=== PATIENT | female | born 1995 | race Caucasian/White ===

== ENCOUNTER 2021-01-16 12:52 | Emergency (ER) | payer OTHER, SELFPAY ==
[2021-01-16 12:51] VITALS: BP 143/110; PULSE 81; RESP 14; TEMP 36.8; O2SAT 99
[2021-01-16 13:42] LABS: Basophils Percent Auto 0.8 % (0.2-1.2); Eosinophils Absolute Auto 0.2 K/mm3 (0-0.3); Eosinophils Percent Auto 3.8 % (0-4.4); Hematocrit 42.3 % (37.0-47.0); Immature Granulocyte Absolute 0.01 K/mm3 (0.00-0.031); Immature Granulocyte Percent A 0.2 % (0-0.5); Lymphocytes Absolute Auto 1.78 K/mm3 (0.9-3.2); Mean Corpuscular HGB Conc 33.1 g/dl (32-36); Mean Corpuscular Hemoglobin 29.7 pg (26-34); Mean Corpuscular Volume 89.6 fl (80-100); Mean Platelet Volume 10.1 fl (7.4-10.4); Monocytes Absolute Auto 0.4 K/mm3 (0.1-0.6); Monocytes Percent Auto 7.9 % (2.6-8.5); Neutrophils Absolute Auto 2.5 K/mm3 (1.3-6.7); Neutrophils Percent Auto 51.3 % (45.5-73.1); Platelet Count Result 249 k/mm3 (150-375); Red Blood Count 4.72 M/mm3 (4.2-5.4); Red Cell Distribution Width 12.2 % (11.5-14.5); White Blood Count 4.9 K/mm3 (4.5-10.0)
[2021-01-16 13:49] LABS: Add Urine Microscopic? YES; Appearance Urine Cloudy (Clear); Bacteria Urine 1+ /hpf; Bilirubin Urine Negative (Negative); Blood Urine Negative (Negative); Color Urine Amber (Yellow); Glucose Urine UA Negative (Negative); Ketones Urine Negative (Negative); Leukocyte Esterase Ur 1+ LEU/UL (Negative); Mucus Urine Heavy /lpf; Nitrate Urine Negative (Negative); Protein Urine 2+ mg/dL (Negative); Specific Grav Ur 1.025 (1.001-1.035); Squamous Epithelial Cell Urine Moderate /hpf (Few); Urobilinogen Urine Negative mg/dL (<2.0); WBC Urine 16-20 /hpf
[2021-01-16 13:54] LABS: Ethanol < 10 mg/dL (<10)
[2021-01-16 13:55] LABS: Alanine Aminotransferase 55 U/L (4-35); Albumin Level 4.2 g/dL (3.5-5.1); Alkaline Phosphatase 52 U/L (38-126); Anion Gap 7 mmol/L (8-16); Aspartate Amino Transferase 47 U/L (14-36); Bilirubin,Total 0.6 mg/dL (0.2-1.3); Blood Urea Nitrogen 9 mg/dL (7-17); Carbon Dioxide 29 mmol/L (22-30); Chloride 105 mmol/L (98-107); Estimated Glomerular Filt Rate > 60; Glucose 114 mg/dL (65-105); Potassium 3.3 mmol/L (3.4-5.0); Sodium 141 mmol/L (137-145)
[2021-01-16 13:59] LABS: Barbiturate Screen Urine Negative (Negative); Benzodiazepines Screen Urine Positive (Negative)
[2021-01-16 14:01] LABS: Cannabinoid Screen Urine Positive (Negative); Cocaine Screen Urine Negative (Negative); Methadone Screen Urine Negative (Negative); Opiate Screen Urine Negative (Negative); Phencyclidine Screen Urine Negative (Negative)
[2021-01-16 14:16] LABS: Amphetamine Screen Urine Positive (Negative)
--- NOTE | 2021-01-16 14:24 | ED.PSYCH ---
HPI - Psych General Chief Complaint: Psychiatric Symptoms Stated Complaint: SI Time Seen by Provider: 01/16/21 12:56 History of Present Illness HPI Narrative: Patient is a 25-year-old female who presents ER with suicidal ideation. Reports she is depressed as today's anniversary of her grandmother's 3 years ago. Reports she took around 3 mg of Xanax and 150 mg of bupropion 5 minutes before calling EMS to come here and attempt to take her own life. She has not been drinking alcohol. Denies drug use. No fever/chills/sweats. No urinary symptoms. Has attempted suicide in the past. Related Data Home Medications Medication Instructions Recorded Confirmed alprazolam 0.5 mg PO DAILY 01/16/21 bupropion HCl 150 mg PO QAM 01/16/21 olanzapine 10 mg PO DAILY 01/16/21 Allergies Allergy/AdvReac Type Severity Reaction Status Date / Time No Known Allergies Allergy Verified 01/16/21 13:57 Review of Systems Review of Systems: All systems reviewed & are unremarkable except as noted in HPI and below Constitutional: Constitutional: Denies chills, Denies fever(s) and Denies weakness Respiratory: Respiratory: Denies cough and Denies dyspnea Gastrointestinal: Gastrointestinal: Denies abdominal pain, Denies nausea and Denies vomiting Musculoskeletal: Musculoskeletal: Denies back pain and Denies muscle cramps Psychiatric: Psychiatric: Denies anxiety, Reports depression, Denies homicidal ideation and Reports suicidal ideation PMFSH Past Medical History Medical History (Updated 01/16/21 @ 14:26 by Galo Ulloa MD) Anxiety Depression Surgical History Surgical History (Updated 01/16/21 @ 14:26 by Galo Ulloa MD) History of cholecystectomy Social History Social History Substance use type: does not use Gender identity (if verbalized by the patient): Female Exam Narrative: Exam Narrative: GENERAL: Well-appearing, well-nourished, and in no acute distress. HEAD: Normocephalic, atraumatic. EYES: PERRL and EOMI. CHEST: Clear to auscultation. No respiratory distress. HEART: Regular rate and rhythm. Normal peripheral pulses. ABDOMEN: Soft, nontender, nondistended. EXTREMITIES: Normal range of motion. No edema. SKIN: Warm, dry, no rash. NEURO: Alert and oriented x3. PSYCH: Flat affect, depressed mood. Endorses suicidality. Not responding to internal stimuli. Course Course Emergency Course: Patient resting comfortably. Medically cleared for evaluation by crisis. Reevaluation(s) Reevaluation #1: Accepted to [facility] by Dr. Suazo. Date: 01/16/21 Time: 17:53 Vital Signs Vital signs: Vital Signs Temperature 98.2 F 01/16/21 12:51 Pulse Rate 81 01/16/21 12:51 Respiratory Rate 14 01/16/21 12:51 Blood Pressure 143/110 H 01/16/21 12:51 Pulse Oximetry 99 01/16/21 12:51 Temperature 98.2 F 01/16/21 12:51 Pulse Rate 81 01/16/21 12:51 Respiratory Rate 14 01/16/21 12:51 Blood Pressure 143/110 H 01/16/21 12:51 Pulse Oximetry 99 01/16/21 12:51 MDM - Psych Lab Data Result diagrams: 01/16/21 13:12 01/16/21 13:12 Labs: Lab Results 01/16/21 01/16/21 01/16/21 Range/Units 13:12 13:12 13:12 WBC 4.9 (4.5-10.0) K/mm3 RBC 4.72 (4.2-5.4) M/mm3 Hgb 14.0 (12.0-15.0) g/dL Hct 42.3 (37.0-47.0) % MCV 89.6 (80-100) fl MCH 29.7 (26-34) pg MCHC 33.1 (32-36) g/dl RDW 12.2 (11.5-14.5) % Plt Count 249 (150-375) k/mm3 MPV 10.1 (7.4-10.4) fl Immature Gran % (Auto) 0.2 (0-0.5) % Neut % (Auto) 51.3 (45.5-73.1) % Lymph % (Auto) 36.0 (18.3-44.2) % [place] % (Auto) 7.9 (2.6-8.5) % Eos % (Auto) 3.8 (0-4.4) % Baso % (Auto) 0.8 (0.2-1.2) % Lymph # (Auto) 1.78 (0.9-3.2) K/mm3 [place] # (Auto) 0.4 (0.1-0.6) K/mm3 Eos # (Auto) 0.2 (0-0.3) K/mm3 Baso # (Auto) 0.0 (0.0-0.1) K/mm3 Abs Immat Gran (auto) 0.01 (0.00-0.031) K/mm3 Absolute Neuts (auto) 2.5
--- NOTE | 2021-01-16 14:37 | PC.NURSE ---
COVID swab sent down to lab. Informed Ray in lab to run the specimen JENNY.
[2021-01-16 20:47] VITALS: BP 130/102; PULSE 78; RESP 13; TEMP 36.8; O2SAT 100
--- NOTE | 2021-01-16 21:00 | PC.NURSE ---
LUCILA Laguna states he removed IV prior to this RN's arrival.
[2021-01-16 23:00] LABS: SARS-CoV-2 RNA PCR Negative
== END 2021-01-16 21:06 ==
PROVIDERS: Emergency Provider Emergency Medicine; PCP Family Medicine
DX: Z20.822 Contact with and (suspected) exposure to COVID-19 (principal); R45.851 Suicidal ideations; F32.9 Major depressive disorder, single episode, unspecified; F41.9 Anxiety disorder, unspecified
CPT/HCPCS: 36415; 80053; 80307; 81001; 81025; 84443; 85025; 87086; 87088; 99285; C9803; U0003; U0005

== ENCOUNTER 2021-02-19 06:20 | Emergency (ER) | payer OTHER, MEDICAID, SELFPAY ==
[2021-02-19] VITALS (51 sets, daily range): BP systolic 111–148; BP diastolic 76–118; PULSE 64–97; RESP 14–21; TEMP 36.6; O2SAT 96–100
--- NOTE | 2021-02-19 06:29 | ECG_ITS ---
Measurements Intervals [place] Rate: 72 P: 38 DE: 140 QRS: 24 QRSD: 98 T: 18 QT: 400 QTc: 439 Interpretive Statements SINUS RHYTHM BORDERLINE T WAVE ABNORMALITY- ANTERIOR LEADS BASELINE ARTIFACT- I, II, III, AVR, AVL, AVF, V1-V2 BORDERLINE ECG Electronically Signed On 02-19-2021 7:37:03 CDT by Chirag Almodovar D.O.
--- NOTE | 2021-02-19 06:43 | ED.PSYCH ---
HPI - Psych General Chief Complaint: Psychiatric Symptoms <Fernie Torres MD - Last Filed: 02/19/21 07:04> Stated Complaint: SI <Fernie Torres MD - Last Filed: 02/19/21 07:04> Time Seen by Provider: 02/19/21 06:53 <Fernie Torres MD - Last Filed: 02/19/21 07:04> Source: patient, EMS and RN notes reviewed <Fernie Torres MD - Last Filed: 02/19/21 07:04> Mode of arrival: EMS <Fernie Torres MD - Last Filed: 02/19/21 07:04> Limitations: no limitations <Fernie Torres MD - Last Filed: 02/19/21 07:04> History of Present Illness HPI Narrative: Patient is 25 years old white female came to the emergency room by ambulance because of major depression, suicidal attempt by taking at least 20 tablets of Benadryl, unknown dose. Patient is telling me that she been depressed for years, last suicidal attempt was January 16, at 5:15 today patient took 10 tablets of Benadryl, 15 minutes later took another 8 to 10 tablets then call 911. Currently patient is asymptomatic except depressed. Patient denies any fever, chills, palpitation, headache, nausea, vomiting Poison control was called <Fernie Torres MD - Last Filed: 02/19/21 07:04> Related Data Home Medications: Home Medications Medication Instructions Recorded Confirmed alprazolam 0.5 mg PO DAILY 01/16/21 bupropion HCl 150 mg PO QAM 01/16/21 olanzapine 10 mg PO DAILY 01/16/21 <Fernie Torres MD - Last Filed: 02/19/21 07:04> Allergies/Adverse Reactions: Allergies Allergy/AdvReac Type Severity Reaction Status Date / Time No Known Allergies Allergy Verified 01/16/21 13:57 <Fernie Torres MD - Last Filed: 02/19/21 07:04> Review of Systems Review of Systems: Narrative: CONSTITUTIONAL: Denies fever, chills, or sweats. EYES: Denies visual changes, redness, or discharge. ENT: Denies rhinorrhea, congestion, sore throat, or otalgia. CARDIOVASCULAR: Denies chest pain, palpitations, or edema. RESPIRATORY: Denies cough or dyspnea. GASTROINTESTINAL: Denies abdominal pain, nausea, vomiting, or diarrhea. GENITOURINARY: Denies dysuria or hematuria. SKIN: Denies rash or itching. MUSCULOSKELETAL: Denies back pain, joint pain, or myalgia. NEUROLOGIC: Denies headache, numbness, or weakness. PSYCHIATRIC: Depression <Fernie Torres MD - Last Filed: 02/19/21 07:04> PMFSH Past Medical History Medical History: Medical History Anxiety Depression <Fernie Torres MD - Last Filed: 02/19/21 07:04> Surgical History Surgical History: Surgical History History of cholecystectomy <Fernie Torres MD - Last Filed: 02/19/21 07:04> Social History Social History: Social History Substance use type: does not use Gender identity (if verbalized by the patient): Female <Fernie Torres MD - Last Filed: 02/19/21 07:04> Exam Narrative: Exam Narrative: General appearance: Well-developed, well-nourished Skin: Normal color Head: Normocephalic, nontraumatic Eyes: Clear conjunctiva ENT: Oropharynx normal, ears normal, nose normal Neck: Supple, nontender Chest and respiratory: Airway patent, no respiratory distress, no accessory muscle use Heart: Regular rate/rhythm Abdomen: Soft, nontender, no organomegaly, quiet bowel sounds Vascular: Normal peripheral pulses, normal capillary refill. Musculoskeletal: Normal range of motion, nontender back Neurologic: Alert and oriented ?3, DEVELOPMENT REPRESENTATIVE is normal as tested, no gross motor deficit <Fernie Torres MD - Last Filed: 02/19/21 07:04> Course Course Emergency Cou
--- NOTE | 2021-02-19 07:08 | PC.NURSE ---
called poison control, spoke with Alina GAYTAN. Poison control recommended keeping pt for 4 hrs to observe for potential tachycardia/seizures. poison control recommended ativan for seizures or tachycardia should they occur and to get a 12 lead ECG and to order Magnesium.
[2021-02-19] MEDS: SODIUM CHLORIDE 0.9% IV 1,000 ML 999 ML IV CONT (07:17)
--- NOTE | 2021-02-19 07:30 | PC.NURSE ---
assumed care of pt, pt is alert and upright on stretcher, pt has fluids infusing, discussed POC, sitter at bedside
[2021-02-19 07:59] LABS: Basophils Percent Auto 0.5 % (0.2-1.2); Eosinophils Absolute Auto 0.1 K/mm3 (0-0.3); Eosinophils Percent Auto 0.9 % (0-4.4); Hematocrit 43.6 % (37.0-47.0); Hemoglobin 14.3 g/dL (12.0-15.0); Immature Granulocyte Absolute 0.02 K/mm3 (0.00-0.031); Immature Granulocyte Percent A 0.3 % (0-0.5); Lymphocytes Percent Auto 23.7 % (18.3-44.2); Mean Corpuscular HGB Conc 32.8 g/dl (32-36); Mean Corpuscular Hemoglobin 29.1 pg (26-34); Mean Corpuscular Volume 88.8 fl (80-100); Mean Platelet Volume 10.5 fl (7.4-10.4); Monocytes Absolute Auto 0.4 K/mm3 (0.1-0.6); Monocytes Percent Auto 5.5 % (2.6-8.5); Neutrophils Absolute Auto 4.4 K/mm3 (1.3-6.7); Neutrophils Percent Auto 69.1 % (45.5-73.1); Platelet Count Result 238 k/mm3 (150-375); Red Blood Count 4.91 M/mm3 (4.2-5.4); Red Cell Distribution Width 12.6 % (11.5-14.5); White Blood Count 6.3 K/mm3 (4.5-10.0)
[2021-02-19 08:02] LABS: Add Urine Microscopic? YES; Appearance Urine Cloudy (Clear); Bacteria Urine 2+ /hpf; Bilirubin Urine Negative (Negative); Blood Urine Negative (Negative); Color Urine Yellow (Yellow); Glucose Urine UA Negative (Negative); Ketones Urine Negative (Negative); Leukocyte Esterase Ur 1+ LEU/UL (Negative); Mucus Urine Few /lpf; Nitrate Urine Negative (Negative); Protein Urine Negative (Negative); Specific Grav Ur 1.013 (1.001-1.035); Squamous Epithelial Cell Urine Many /hpf (Few); Urobilinogen Urine Negative mg/dL (<2.0); WBC Urine 31-50 /hpf
[2021-02-19 08:08] LABS: Alanine Aminotransferase 28 U/L (4-35); Albumin Level 4.1 g/dL (3.5-5.1); Alkaline Phosphatase 42 U/L (38-126); Anion Gap 9 mmol/L (8-16); Aspartate Amino Transferase 27 U/L (14-36); Bilirubin,Total 0.3 mg/dL (0.2-1.3); Blood Urea Nitrogen 9 mg/dL (7-17); Calcium 9.5 mg/dL (8.4-10.2); Carbon Dioxide 28 mmol/L (22-30); Chloride 105 mmol/L (98-107); Creatine Kinase 75 U/L (30-135); Estimated CRCL calculation 94 ml/min; Estimated Glomerular Filt Rate > 60; Glucose 81 mg/dL (65-105); Sodium 142 mmol/L (137-145)
[2021-02-19 08:18] LABS: Acetaminophen < 10 ug/mL (10-30); Ethanol < 10 mg/dL (<10); Salicylate < 1.0 mg/dL (2-20)
[2021-02-19 08:42] LABS: Amphetamine Screen Urine Negative (Negative); Barbiturate Screen Urine Negative (Negative); Benzodiazepines Screen Urine Negative (Negative); Cannabinoid Screen Urine Positive (Negative); Cocaine Screen Urine Negative (Negative); Methadone Screen Urine Negative (Negative); Opiate Screen Urine Negative (Negative); Phencyclidine Screen Urine Negative (Negative)
--- NOTE | 2021-02-19 10:22 | PC.NURSE ---
spoke w/ hal rn at poison control at this time - gave update on pt status,
--- NOTE | 2021-02-19 10:29 | PC.NURSE ---
Per Alina GAYTAN w/ poison control, due to HR of 80 she feels this pt is medically clear. Typically the pt would be tachycardic, and w/ stable HR okay to assume she is past her peak. EDP Dr Ulloa made aware.
--- NOTE | 2021-02-19 10:30 | PC.NURSE ---
Per Dr Ulloa, due to pt medically cleared by Poison control, can call Crisis for eval at this time.
--- NOTE | 2021-02-19 12:00 | PC.NURSE ---
lamberto scrap metal processing worker here to evaluate patient. information faxed to 3 hospitals
--- NOTE | 2021-02-19 12:38 | PC.NURSE ---
requested paperwork faxed to [facility]
--- NOTE | 2021-02-19 13:04 | PC.NURSE ---
spoke with [facility] to provide requested information. They stated they will discuss with admission and return call
[2021-02-19 14:28] LABS: SARS-CoV-2 RNA PCR Negative
--- NOTE | 2021-02-19 17:09 | PC.NURSE ---
abbot update at 17:07 eta 45 mins
== END 2021-02-19 18:45 ==
PROVIDERS: Emergency Medicine; Emergency Provider Emergency Medicine; PCP Family Medicine
DX: Z20.822 Contact with and (suspected) exposure to COVID-19 (principal); F32.9 Major depressive disorder, single episode, unspecified; R45.851 Suicidal ideations; F41.9 Anxiety disorder, unspecified
CPT/HCPCS: 36415; 80053; 80307; 81001; 82550; 85025; 87086; 93005; 96360; 99285; C9803; J7030; U0003; U0005

== ENCOUNTER 2021-05-13 03:26 | Observation (INO) | payer OTHER, SELFPAY ==
[2021-05-13] VITALS (14 sets, daily range): BP systolic 94–122; BP diastolic 59–88; PULSE 60–93; RESP 12–20; TEMP 36.1–36.6; O2SAT 97–100
--- NOTE | ~2021-05-13 | XR_ITS ---
EXAMINATION: XR chest 1V portable 05/13/2021 04:12 INDICATION: Overdose PROCEDURE: AP portable chest COMPARISON: No prior studies for comparison. FINDINGS: The lungs are clear. The cardiomediastinal silhouette is within normal limits. There are no pleural effusions. There is no pneumothorax suspected. IMPRESSION: 1: NO ACUTE CARDIOPULMONARY DISEASE. Reviewed, dictated and finalized at location A.
--- NOTE | 2021-05-13 03:49 | PC.NURSE ---
called poison control.
--- NOTE | 2021-05-13 03:52 | ECG_ITS ---
Measurements Intervals [place] Rate: 81 P: 66 MO: 136 QRS: 30 QRSD: 87 T: 55 QT: 453 QTc: 526 Interpretive Statements SINUS RHYTHM PROLONGED QT INTERVAL ABNORMAL ECG Electronically Signed On 05-13-2021 6:34:01 CDT by Chirag Almodovar D.O.
--- NOTE | 2021-05-13 03:54 | ED.OVERDOSE ---
HPI - Overdose General Chief Complaint: Overdose Stated Complaint: OD Source: patient and RN notes reviewed Mode of arrival: EMS Limitations: other (sleepy) History of Present Illness HPI Narrative: This is a 25 year old female who presents for evaluation after an intentional overdose. Patient states she made a mistake by cheating on her boyfriend so she took 15 pills of her Trazodone 100 mg. She states she took the medications 15 minutes before calling EMS. She also took 1 mg Xanax tonight. She denies any other medications or alcohol use. She denies previous suicide attempt but she does admit to psychiatric hospitalization 1 year ago. She is drowsy but otherwise she denies any other complaints. MD complaint: intentional overdose Related Data Home Medications Medication Instructions Recorded Confirmed alprazolam 0.5 mg PO DAILY 01/16/21 bupropion HCl 150 mg PO QAM 01/16/21 olanzapine 10 mg PO DAILY 01/16/21 amitriptyline 05/13/21 05/13/21 gabapentin 05/13/21 trazodone 05/13/21 Allergies Allergy/AdvReac Type Severity Reaction Status Date / Time No Known Allergies Allergy Verified 01/16/21 13:57 Review of Systems Review of Systems: All systems reviewed & are unremarkable except as noted in HPI and below PMFSH Past Medical History Medical History Anxiety Depression Surgical History Surgical History History of cholecystectomy Social History Social History Substance use type: tranquilizers Gender identity (if verbalized by the patient): Female Exam Const: General: no acute distress Orientation/consciousness: patient oriented x3 Other: patient extremely drowsy Eyes: EOM: EOMs intact bilaterally Resp: Effort & Inspection: normal respiratory effort and no retractions Auscultation: clear to auscultation bilaterally Cardio: Rate: regular rate Rhythm: regular rhythm Heart sounds: no murmurs GI: GI Palp: Yes Soft to palpation, No Tenderness to palpation present (GI) and No Guarding due to palpation present (GI) Auscultation: normal bowel sounds Skin: General skin exam: normal color Rashes: no rashes Neuro: General: moves all extremities and CN's II-XI intact bilaterally Psych: Mental Status: mental status grossly normal Course Reevaluation(s) Reevaluation #1: PAtient is drowsiness but she is easily arousable. Date: 05/13/21 Time: 05:31 Consultations Consultation #1: I discussed case and labs with Dr. arthur. She accepts patient to ICU. She is coming down to ER to evaluate patient. she recommends giving another liter of fluids Date: 05/13/21 Time: 05:32 Consultation #2: Dr. patel accepts patient to ICU. request patient to be given at least 2 L IVF Date: 05/13/21 Time: 05:34 Vital Signs Vital signs: Vital Signs Temperature 98 F 05/13/21 03:35 Respiratory Rate 12 05/13/21 03:35 Blood Pressure 122/88 05/13/21 03:35 Pulse Oximetry 100 05/13/21 03:35 Temperature 98 F 05/13/21 03:35 Pulse Rate 93 05/13/21 06:15 Respiratory Rate 18 05/13/21 06:15 Blood Pressure 105/78 05/13/21 06:15 Pulse Oximetry 99 05/13/21 06:15 MDM - Overdose Medical Records Attestation: I reviewed the patient's medical records. Lab Data Attestation: I reviewed the patient's lab results. Result diagrams: 05/13/21 04:17 05/13/21 04:17 Labs: Lab Results 05/13/21 05/13/21 05/13/21 Range/Units 04:05 04:05 04:17 WBC 6.8 (4.5-10.0) K/mm3 RBC 4.55 (4.2-5.4) M/mm3 Hgb 13.6 (12.0-15.0) g/dL Hct 40.5 (37.0-47.0) % MCV 89.0 (80-100) fl MCH 29.9 (26-34) pg MCHC 33.6 (32-36) g/dl RDW 12.4 (11.5-14.5) % Plt Count 298 (150-375) k/mm3 MPV 10.0 (7.4-10.4) fl Immature Gran % (Auto) 0.3 (0-0.5) % Neut % (Auto) 61.3
[2021-05-13 04:25] LABS: Basophils Percent Auto 0.6 % (0.2-1.2); Eosinophils Absolute Auto 0.1 K/mm3 (0-0.3); Eosinophils Percent Auto 1.6 % (0-4.4); Hematocrit 40.5 % (37.0-47.0); Hemoglobin 13.6 g/dL (12.0-15.0); Immature Granulocyte Absolute 0.02 K/mm3 (0.00-0.031); Immature Granulocyte Percent A 0.3 % (0-0.5); Lymphocytes Absolute Auto 1.97 K/mm3 (0.9-3.2); Lymphocytes Percent Auto 28.9 % (18.3-44.2); Mean Corpuscular HGB Conc 33.6 g/dl (32-36); Mean Corpuscular Hemoglobin 29.9 pg (26-34); Monocytes Absolute Auto 0.5 K/mm3 (0.1-0.6); Monocytes Percent Auto 7.3 % (2.6-8.5); Neutrophils Absolute Auto 4.2 K/mm3 (1.3-6.7); Neutrophils Percent Auto 61.3 % (45.5-73.1); Platelet Count Result 298 k/mm3 (150-375); Red Blood Count 4.55 M/mm3 (4.2-5.4); Red Cell Distribution Width 12.4 % (11.5-14.5); White Blood Count 6.8 K/mm3 (4.5-10.0)
[2021-05-13 04:35] LABS: Partial Thromboplastin Time 24.1 SECONDS (22.3-36.8); Prothrombin Time 13.4 Seconds (11.1-14.7)
[2021-05-13 04:37] LABS: Acetaminophen < 10 ug/mL (10-30); Ethanol < 10 mg/dL (<10); Salicylate < 1.0 mg/dL (2-20)
[2021-05-13 05:04] LABS: Barbiturate Screen Urine Negative (Negative); Benzodiazepines Screen Urine Positive (Negative)
[2021-05-13 05:05] LABS: Add Urine Microscopic? YES; Appearance Urine Cloudy (Clear); Bacteria Urine 3+ /hpf; Bilirubin Urine 2+ (Negative); Blood Urine Negative (Negative); Color Urine Amber (Yellow); Glucose Urine UA Negative (Negative); Hyaline Casts Urine 50+ /lpf; Ketones Urine Negative (Negative); Leukocyte Esterase Ur Trace LEU/UL (Negative); Mucus Urine Heavy /lpf; Nitrate Urine Negative (Negative); Protein Urine 2+ mg/dL (Negative); Specific Grav Ur 1.029 (1.001-1.035); Squamous Epithelial Cell Urine Many /hpf (Few); WBC Urine 16-20 /hpf
[2021-05-13 05:14] LABS: Alanine Aminotransferase 21 U/L (4-35); Albumin Level 4.6 g/dL (3.5-5.1); Alkaline Phosphatase 70 U/L (38-126); Anion Gap 11 mmol/L (8-16); Aspartate Amino Transferase 31 U/L (14-36); Bilirubin,Total 0.9 mg/dL (0.2-1.3); Blood Urea Nitrogen 10 mg/dL (7-17); Calcium 9.3 mg/dL (8.4-10.2); Carbon Dioxide 28 mmol/L (22-30); Chloride 103 mmol/L (98-107); Creatine Kinase 423 U/L (30-135); Estimated CRCL calculation 59 ml/min; Estimated Glomerular Filt Rate > 60; Glucose 104 mg/dL (65-110); Potassium 2.7 mmol/L (3.4-5.0); Sodium 142 mmol/L (137-145)
[2021-05-13 05:14] LABS: Cannabinoid Screen Urine Positive (Negative); Cocaine Screen Urine Negative (Negative); Methadone Screen Urine Negative (Negative); Opiate Screen Urine Positive (Negative); Phencyclidine Screen Urine Negative (Negative)
[2021-05-13 05:17] LABS: Amphetamine Screen Urine Positive (Negative)
[2021-05-13] MEDS: SODIUM CHLORIDE 0.9% IV 1,000 ML 999 ML IV CONT ×2 (06:14)
--- NOTE | 2021-05-13 08:20 | PM.IMHP ---
H&P: HPI History of Present Illness Date/Time: 05/13/21 08:20 She is a 25-year-old female past medical history of anxiety / depression Chantale was brought in here to the emergency department with intentional overdose. She took 15 pills of trazodone with 100 mg each. She called EMS 15 minutes after she ingested the trazodone. She also took 1 mg of Xanax. She denied any other medication or alcohol use. She denied have any previous suicidal attempt but she does admit to psychiatric hospitalization about a year ago. In the emergency department her hemodynamics were stable. Her CPK was found to be 423. Urine drug screen is positive for opiates and benzodiazepines. BMP showed potassium of 2.7. Chief Complaint: Drug overdose Narrative: She is a 25-year-old female past medical history of anxiety / depression Chantale was brought in here to the emergency department with intentional overdose. She took 15 pills of trazodone with 100 mg each. She called EMS 15 minutes after she ingested the trazodone. She also took 1 mg of Xanax. She denied any other medication or alcohol use. She denied have any previous suicidal attempt but she does admit to psychiatric hospitalization about a year ago. In the emergency department her hemodynamics were stable. Her CPK was found to be 423. Urine drug screen is positive for opiates and benzodiazepines. BMP showed potassium of 2.7. Review of Systems Review of Systems: Narrative: A comprehensive review of systems has been reviewed with the patient and most of the symptoms are negative except the one's mentioned above in HPI. [facility] Past Medical History Medical History (Updated 05/13/21 @ 14:20 by Sarkis Maldonado MD) Anxiety Depression Surgical History Surgical History History of cholecystectomy Social History Social History Smoking status: Never smoker Alcohol intake: unknown Substance use type: marijuana Other substance usage details: URINE DRUG SCREEN POSITIVE, REFUSES TO ANSWER Gender identity (if verbalized by the patient): Female Spiritual care concerns: No Meds Home Medications and Allergies Home Medications Medication Instructions Recorded Confirmed Type olanzapine 10 mg PO DAILY 01/16/21 05/13/21 History alprazolam 0.5 mg PO PRN 05/13/21 05/13/21 History amitriptyline 10 mg PO HS 05/13/21 05/13/21 History duloxetine 60 mg PO DAILY 05/13/21 05/13/21 History trazodone 200 mg PO HS 05/13/21 05/13/21 History Allergies Allergy/AdvReac Type Severity Reaction Status Date / Time No Known Allergies Allergy Verified 01/16/21 13:57 Vital Signs Vital Signs - 24 hr 05/13/21 03:35 05/13/21 04:49 05/13/21 06:15 Temperature 36.6 C Pulse Rate 80 93 Respiratory Rate 12 12 18 Blood Pressure 122/88 95/67 L 105/78 Pulse Oximetry 100 97 99 05/13/21 07:11 Temperature Pulse Rate 77 Respiratory Rate 13 Blood Pressure 109/71 Pulse Oximetry 100 Exam Narrative: Exam Narrative: General Sleepy but arousable not in acute distress Eyes PERRLA normal conjunctiva no discharge HEENT no discharge Neck supple dull tenderness no deformity JVD not elevated CVS S1-S2 no murmur Respiratory no wheezes or crepitation respiration nonlabored GI soft nontender nondistended no hepatosplenomegaly Chest wall no tenderness or deformity Back nontender no deformity 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 Cooperative. Not agitated. Musculoskeletal normal range of motion or joint swelling no rashes Extremities no edema H&P: Results Labs Labs: Short CBC 05/13/21 Range/Units 04:17 WBC 6.8 (4.5-10.0) K/mm3 Hgb 13.6 (12.0-15.0) g/dL Hct 40.5 (37.0-47.0) % Plt Count 298 (150-375) k/mm3 [facility] 05/13/21 04:17 Sodium 142 Potassium 2.7 L* Chloride 103 Carbon Dioxide 28 BUN 10 Creatinine 1.00 Glucose 104 Ca
[2021-05-13 09:30] LABS: Basophils Percent Auto 0.5 % (0.2-1.2); Eosinophils Absolute Auto 0.1 K/mm3 (0-0.3); Eosinophils Percent Auto 1.2 % (0-4.4); Hematocrit 34.1 % (37.0-47.0); Hemoglobin 11.5 g/dL (12.0-15.0); Immature Granulocyte Absolute 0.03 K/mm3 (0.00-0.031); Immature Granulocyte Percent A 0.4 % (0-0.5); Lymphocytes Absolute Auto 1.85 K/mm3 (0.9-3.2); Lymphocytes Percent Auto 25.2 % (18.3-44.2); Mean Corpuscular HGB Conc 33.7 g/dl (32-36); Mean Corpuscular Hemoglobin 30.2 pg (26-34); Mean Corpuscular Volume 89.5 fl (80-100); Monocytes Absolute Auto 0.5 K/mm3 (0.1-0.6); Monocytes Percent Auto 7.2 % (2.6-8.5); Neutrophils Absolute Auto 4.8 K/mm3 (1.3-6.7); Neutrophils Percent Auto 65.5 % (45.5-73.1); Platelet Count Result 245 k/mm3 (150-375); Red Blood Count 3.81 M/mm3 (4.2-5.4); Red Cell Distribution Width 12.4 % (11.5-14.5); White Blood Count 7.4 K/mm3 (4.5-10.0)
--- NOTE | 2021-05-13 11:13 | PC.NURSE ---
This patient, Guerline Rodrigez, was admitted to Intensive Care Unit-2 as Med/Tele. Patient/family oriented to hospital policies and general routines including ID bracelet, bed and alarms, visiting hours, pain management, procedures, bathroom and other care routines, personal items, smoking policy, room service/diet, and visiting hours. Information on how to activate the Rapid Response Team has been discussed. Patient/Family are encouraged to report perceived risks to care and to ask questions if they do not understand what they are told or what they should do.
[2021-05-13] MEDS: LACTATED RINGERS 1,000 ML 100 ML IV CONT ×2 (11:38→22:00)
[2021-05-13] MEDS: HEPARIN SODIUM 5,000 UNITS/ML VIAL 5000 UNITS SUB-Q ×2 (11:45→20:12)
[2021-05-14] VITALS (10 sets, daily range): BP systolic 113–127; BP diastolic 69–82; PULSE 54–113; RESP 16–18; TEMP 36–36.9; O2SAT 95–99
[2021-05-14 04:58] LABS: Basophils Percent Auto 0.8 % (0.2-1.2); Eosinophils Absolute Auto 0.2 K/mm3 (0-0.3); Eosinophils Percent Auto 4.5 % (0-4.4); Hematocrit 34.2 % (37.0-47.0); Hemoglobin 11.4 g/dL (12.0-15.0); Immature Granulocyte Absolute 0.01 K/mm3 (0.00-0.031); Immature Granulocyte Percent A 0.3 % (0-0.5); Lymphocytes Absolute Auto 1.83 K/mm3 (0.9-3.2); Mean Corpuscular HGB Conc 33.3 g/dl (32-36); Mean Platelet Volume 10.6 fl (7.4-10.4); Monocytes Absolute Auto 0.2 K/mm3 (0.1-0.6); Monocytes Percent Auto 5.8 % (2.6-8.5); Neutrophils Absolute Auto 1.7 K/mm3 (1.3-6.7); Neutrophils Percent Auto 42.6 % (45.5-73.1); Platelet Count Result 218 k/mm3 (150-375); Red Cell Distribution Width 12.7 % (11.5-14.5)
[2021-05-14 05:37] LABS: Anion Gap 7 mmol/L (8-16); Blood Urea Nitrogen 6 mg/dL (7-17); Calcium 8.6 mg/dL (8.4-10.2); Carbon Dioxide 25 mmol/L (22-30); Chloride 107 mmol/L (98-107); Estimated CRCL calculation 82 ml/min; Estimated Glomerular Filt Rate > 60; Glucose 77 mg/dL (65-110); Potassium 2.9 mmol/L (3.4-5.0); Sodium 139 mmol/L (137-145)
[2021-05-14] MEDS: LACTATED RINGERS 1,000 ML 100 ML IV CONT (08:06)
[2021-05-14] MEDS: POTASSIUM CHLORIDE 20 MEQ TABLET.ER 40 MEQ PO ×2 (09:56→16:16)
[2021-05-14] MEDS: HEPARIN SODIUM 5,000 UNITS/ML VIAL 5000 UNITS SUB-Q ×2 (09:57→20:06)
[2021-05-14 10:33] LABS: Creatine Kinase 166 U/L (30-135)
[2021-05-14 13:16] LABS: EDCOVIDSCREEN Negative (Negative)
--- NOTE | 2021-05-14 13:22 | PM.IMPN ---
Progress Note: A&P Assessment and Plan (1) Suicide attempt by drug overdose: Code(s): T50.902A - Poisoning by unspecified drugs, medicaments and biological substances, intentional self-harm, initial encounter Status: Acute Assessment and Plan: Took 15 tablets of trazodone 100 mg each Clinically improved and hemodynamically stable She was able to sit and eat her breakfast without any difficulty will discontinue IV fluid as CK is close to normal Crisis team will evaluate her today to see if she needs admission to inpatient psych facility. She will remain on one-to-one sitter at the bedside. (2) Anxiety: Code(s): F41.9 - Anxiety disorder, unspecified Status: Inactive Assessment and Plan: She is on buproprion and alprazolam at her baseline. currently on hold (3) Depression: Code(s): F32.9 - Major depressive disorder, single episode, unspecified Status: Inactive Assessment and Plan: She is currently on olanzapine. currently on home (4) Hypokalemia: Code(s): E87.6 - Hypokalemia Status: Acute Assessment and Plan: replacement ordered Subjective Date/time seen: 05/14/21 She feels better this morning as compared to yesterday but complains of headache which is 6/10. She states she gets chronic headaches and was prescribed topiramate by her neurologist but she never takes it. denies any other complaints. ate her breakfast this morning. No dizziness lightheadedness blurry vision. all other systems were reviewed and were negative Review of Systems Review of Systems: All systems reviewed & are unremarkable except as noted in HPI and below ( subjective) Exam Narrative: Exam Narrative: General: Pt is Drowsy but easily arousable and in NAD Lungs/Chest: Trachea central Clear BS B/L, No crackles or wheezing. Cardiac: RRR. Normal S1 S2. No murmurs Circulation: Pedal pulses are intact and symmetrical. Abdomen: Normal bowel sounds.. Soft. NT. ND. Extremities: No clubbing, cyanosis or edema. Warm : Garay in place Neurologic: Follows commands. Moves all 4 extremities PERRL, Alert oriented x3 Skin: No Rash Objective Data Vital Signs Vital Signs: Vital Signs - 24 hr 05/13/21 14:00 05/13/21 16:00 05/13/21 18:00 Temperature 36.4 C Pulse Rate 60 60 60 Respiratory Rate 12 13 Blood Pressure 94/59 L 99/72 L Pulse Oximetry 99 100 05/13/21 20:00 05/13/21 22:00 05/14/21 00:00 Temperature 36.1 C L 36.0 C L Pulse Rate 62 65 72 Respiratory Rate 14 16 Blood Pressure 102/71 115/69 Pulse Oximetry 98 96 05/14/21 02:00 05/14/21 04:00 05/14/21 06:00 Temperature 36.3 C L Pulse Rate 80 84 77 Respiratory Rate 16 Blood Pressure 117/82 Pulse Oximetry 95 05/14/21 08:00 05/14/21 10:00 05/14/21 12:00 Temperature 36.9 C Pulse Rate 113 H 77 66 Respiratory Rate 16 Blood Pressure 127/79 Pulse Oximetry 97 Intake/Output Intake/Output: Intake & Output 05/11/21 05/12/21 05/13/21 05/14/21 23:59 23:59 23:59 23:59 Intake Total 3500 1480 Output Total 0 450 Balance 3500 1030 Meds/Results Medications: Active Medications Generic Name Dose Route Start Last Admin Trade Name Freq PRN Reason Stop Dose Admin Acetaminophen 650 mg 05/13/21 07:55 Acetaminophen 325 Mg Tablet PO Q6HR PRN Mild Pain (1-3) or Fever Heparin Sodium (Porcine) 5,000 units 05/13/21 09:00 05/14/21 09:57 Heparin Sodium 5,000 Units/Ml Vial SUB-Q 5,000 units Q12HR TAZ Administration Sodium Chloride 1,000 mls @ 125 mls/hr 05/13/21 05:45 05/13/21 16:43 Normal Saline Iv IV CONT Not Given .Q8H TAZ Lactated Ringer's 1,000 mls @ 100 mls/hr 05/13/21 07:55 05/14/21 08:06 Lr - Lactated Ringers Iv IV CONT 100 mls/hr .Q10H TAZ Administration Magnesium Hydroxide 30 ml 05/13/21 08:00 Magnesium Hydroxide Susp 30 Ml Udc PO DAILY PRN Constipation Ondansetron HCl 4 m
[2021-05-14 14:57] LABS: Add Urine Microscopic? YES; Appearance Urine Cloudy (Clear); Bilirubin Urine Negative (Negative); Blood Urine 2+ (Negative); Color Urine Yellow (Yellow); Glucose Urine UA Negative (Negative); Ketones Urine Trace mg/dL (Negative); Leukocyte Esterase Ur 3+ LEU/UL (Negative); Mucus Urine Rare /lpf; Nitrate Urine Negative (Negative); Protein Urine Negative (Negative); Specific Grav Ur 1.012 (1.001-1.035); Squamous Epithelial Cell Urine Rare /hpf (Few); WBC Urine >75 /hpf
[2021-05-14 17:13] LABS: Potassium 3.1 mmol/L (3.4-5.0)
[2021-05-14 19:04] LABS: Potassium 3.2 mmol/L (3.4-5.0)
[2021-05-14] MEDS: POTASSIUM CHLORIDE 20 MEQ PACKET (FOR LIQUID) 40 MEQ PO (20:06)
[2021-05-15 01:27] LABS: Anion Gap 4 mmol/L (8-16); Blood Urea Nitrogen 8 mg/dL (7-17); Calcium 8.1 mg/dL (8.4-10.2); Carbon Dioxide 26 mmol/L (22-30); Chloride 109 mmol/L (98-107); Estimated CRCL calculation 95 ml/min; Estimated Glomerular Filt Rate > 60; Glucose 113 mg/dL (65-110); Potassium 3.9 mmol/L (3.4-5.0); Sodium 139 mmol/L (137-145)
[2021-05-15 03:42] VITALS: BP 113/77; PULSE 63; RESP 18; TEMP 36.7; O2SAT 97
[2021-05-15 06:00] VITALS: PULSE 63
[2021-05-15 08:00] VITALS: BP 130/81; PULSE 59; PULSE 60; RESP 20; TEMP 36.8; O2SAT 99
--- NOTE | 2021-05-15 11:22 | PM.DS ---
DS: Admitting Diagnosis Admitting Diagnosis (1) Suicide attempt by drug overdose: Code(s): T50.902A - Poisoning by unspecified drugs, medicaments and biological substances, intentional self-harm, initial encounter Status: Acute Assessment and Plan: Took 15 tablets of trazodone 100 mg each neuro checks every 2-4 hours. Continue to monitor hemodynamics closely. Will continue IV fluid. She will be admitted to ICU for close monitoring. Crisis team will evaluate to see if she needs admission to inpatient psych facility. She will remain on one-to-one sitter at the bedside. (2) Anxiety: Code(s): F41.9 - Anxiety disorder, unspecified Status: Inactive Assessment and Plan: She is on buproprion and alprazolam at her baseline. I will hold off her home medication for now. (3) Depression: Code(s): F32.9 - Major depressive disorder, single episode, unspecified Status: Inactive Assessment and Plan: She is currently on olanzapine. I will hold olanzapine as well. (4) Hypokalemia: Code(s): E87.6 - Hypokalemia Status: Acute Assessment and Plan: repleted continue to monitor BMP. DS: Discharge Diagnosis Discharge Diagnosis (1) Suicide attempt by drug overdose: Code(s): T50.902A - Poisoning by unspecified drugs, medicaments and biological substances, intentional self-harm, initial encounter Status: Acute Assessment and Plan: Took 15 tablets of trazodone 100 mg each Clinically improved and hemodynamically stable She was able to sit and eat her breakfast without any difficulty will discontinue IV fluid as CK is close to normal Crisis team will evaluate her today to see if she needs admission to inpatient psych facility. She will remain on one-to-one sitter at the bedside. (2) Hypokalemia: Code(s): E87.6 - Hypokalemia Status: Acute Assessment and Plan: replacement ordered DS: Summary Hospital Course Hospital Course: 25-year-old female admitted to the hospital after suicide attempt by ingestion of pills. Patient was seen by behavioral health and was advised to be discharged to [facility] for ongoing therapy. After monitoring in the ICU she is discharged to [facility] in stable condition with indications follow-up with her primary care physician. Status at Discharge Functional status at discharge: independent ambulation Overall status at discharge: patient is back to baseline Time Spent with Patient Time attestation: Total time spent providing and/or coordinating discharge services: Time spent: Less than 30 minutes Exam Narrative: Exam Narrative: GEN: NAD, AAOx3, cooperative HEENT: NCAT, MMM, EOMI Neck: no JVD Heart: S1S2 RRR Lungs: CTA B/l Abd: soft, NT, ND, bowel sounds normoactive Ext: moves all, no cyanosis, no clubbing, no edema Neuro: normal cognition, moves all extremities equally, no focal neurological deficits Psych: mood reduced, affect congruent DS: Data Data Completed and Pending Labs on day of discharge: Labs from last 24 hours 05/15/21 05/14/21 05/14/21 01:00 18:43 16:45 Sodium 139 Potassium 3.9 3.2 L 3.1 L Chloride 109 H Carbon Dioxide 26 Anion Gap 4 L BUN 8 Creatinine 0.60 L Estim Creat Clear Calc 95 Estimated GFR > 60 Glucose 113 H Calcium 8.1 L Urine Color Urine Appearance Urine pH Ur Specific [place] Urine Protein Urine Glucose (UA) Urine Ketones Ur Blood (Man) Urine Nitrate Urine Bilirubin Urine Urobilinogen Leukocyte Esterase Rfl Urine RBC Urine WBC Ur Squamous Epith Cells Urine Mucus SARS-CoV-2 IgG/IgM Ag?Rapid 05/14/21 05/14/21 14:26 12:53 Sodium Potassium Chloride Carbon Dioxide Anion Gap BUN Creatinine Estim Creat Clear Calc Estimated GFR Glucose Calcium Urine Color Yellow Urine Appearance Clou
--- NOTE | 2021-05-15 13:43 | PM.TDS ---
Transfer Discharge Sum: Prov Provider Date of admission: 05/13/21 07:57 Primary care physician: UNKNOWN,DOCTOR Admitting clinician: Nichelle Garza DO Consults: 05/13/21 05:44 Consult to Physician Routine Comment: Consulting Provider: Sirisha Mata Reason for consultation: intentional drug overdose Has provider been notified: Yes DS: Admitting Diagnosis Admitting Diagnosis EtOH withdrawal sepsis DS: Discharge Diagnosis Discharge Diagnosis (1) Hypokalemia: Code(s): E87.6 - Hypokalemia Status: Acute (2) Suicide attempt by drug overdose: Code(s): T50.902A - Poisoning by unspecified drugs, medicaments and biological substances, intentional self-harm, initial encounter Status: Acute Transfer Discharge Sum: Med Medications Active and Home Medications: Home Medications olanzapine 10 mg PO DAILY 01/16/21 [History Confirmed 05/13/21] alprazolam 0.5 mg PO PRN 05/13/21 [History Confirmed 05/13/21] amitriptyline 10 mg PO HS 05/13/21 [History Confirmed 05/13/21] duloxetine 60 mg PO DAILY 05/13/21 [History Confirmed 05/13/21] trazodone 200 mg PO HS 05/13/21 [History Confirmed 05/13/21] Transfer Discharge Sum: Hosp Hospital Course Hospital course: Guerline Rodrigez is a 25 year old female admitted to the hospital after suicide attempt by ingestion of pills. Patient was seen by behavioral health and was advised to be discharged to [facility] for ongoing therapy. After monitoring in the ICU she is discharged to [facility] in stable condition with indications follow-up with her primary care physician. Time Spent with Patient Time attestation: Total time spent providing and/or coordinating transfer services: Exam Narrative: GEN: NAD, AAOx3, cooperative HEENT: NCAT, MMM, EOMI Neck: no JVD Abd: soft, NT, ND, bowel sounds normoactive Ext: moves all, no cyanosis, no clubbing, no edema Neuro: CN intact , moves all extremities equally Psych: mood and affect congruent
== END 2021-05-15 09:57 ==
LOC: ANHED 07:05 → ANHICU 16:49 → ANH3MEDSUR 05-16 15:55 → ANHICU 05-16 15:55
PROVIDERS: Internal Medicine; Internal Medicine Critical Care Medicine; Admitting Provider Internal Medicine; Emergency Provider General Practice; Visit Provider Hospitalist
DX: T50.902A Poisoning by unspecified drugs, medicaments and biological substances, intentional self-harm, initial encounter (principal); E87.6 Hypokalemia; F41.9 Anxiety disorder, unspecified; F32.9 Major depressive disorder, single episode, unspecified; Z20.822 Contact with and (suspected) exposure to COVID-19
CPT/HCPCS: 36415; 51701; 71045; 80048; 80053; 80307; 81001; 81025; 82550; 83735; 84132; 85025; 85610; 85730; 87077; 87086; 87088; 87186; 87426; 93005; 96361; 96365; 96366; 96372; 99285; A9270; C9803; G0378; J1644; J3480; J7030; J7120

== ENCOUNTER 2021-05-23 03:13 | Observation (INO) | payer OTHER, SELFPAY ==
[2021-05-23] VITALS (18 sets, daily range): BP systolic 130–150; BP diastolic 79–112; PULSE 77–133; RESP 12–26; TEMP 35.9–36.6; O2SAT 98–100; BMI 24.3
--- NOTE | 2021-05-23 03:24 | ECG_ITS ---
Measurements Intervals [place] Rate: 113 P: 52 AR: 126 QRS: 39 QRSD: 89 T: 46 QT: 366 QTc: 503 Interpretive Statements SINUS TACHYCARDIA POSSIBLE LEFT ATRIAL ENLARGEMENT BASELINE ARTIFACT- II, III, AVR, AVF, V1-V6 ABNORMAL ECG Electronically Signed On 05-23-2021 5:58:03 CDT by Chirag Almodovar D.O.
--- NOTE | 2021-05-23 03:32 | ED.GENADULT ---
HPI - General Adult General Chief complaint: Overdose Stated complaint: intentional over dose alprazolam Time Seen by Provider: 05/23/21 03:23 History of Present Illness HPI narrative: Patient was 25-year-old female presents the emergency department with chief complaint of overdose. Patient states she took approximately 15 of her olanzapine tablets today and attempt to harm herself. The patient states she has been depressed reports she feels anxious and is upset because no one will spend time with her. Patient has had prior overdoses in the past Related Data Home Medications Medication Instructions Recorded Confirmed olanzapine 10 mg PO DAILY 01/16/21 05/13/21 alprazolam 0.5 mg PO PRN 05/13/21 05/13/21 amitriptyline 10 mg PO HS 05/13/21 05/13/21 duloxetine 60 mg PO DAILY 05/13/21 05/13/21 trazodone 200 mg PO HS 05/13/21 05/13/21 Allergies Allergy/AdvReac Type Severity Reaction Status Date / Time No Known Allergies Allergy Verified 01/16/21 13:57 Review of Systems Review of Systems: A 10 system review of systems was completed on the patient and is negative except for what is stated in the HPI. Nursing and ancillary documentation was reviewed. [facility] Past Medical History Medical History Anxiety Depression Surgical History Surgical History History of cholecystectomy Social History Social History Smoking status: Never smoker Alcohol intake: unknown Substance use type: does not use Other substance usage details: URINE DRUG SCREEN POSITIVE, REFUSES TO ANSWER Gender identity (if verbalized by the patient): Female Spiritual care concerns: No Exam Narrative: GENERAL: Well-appearing, well-nourished, and in no acute distress. HEAD: Normocephalic, atraumatic. EYES: PERRLA and EOMI. ENT: Nares clear, no rhinorrhea or epistaxis. Mucous membranes moist. NECK: Supple. CHEST: Clear to auscultation. No respiratory distress. HEART: Regular rate and rhythm. No murmur heard. Normal peripheral pulses. ABDOMEN: Soft, nontender, nondistended, normal active bowel sounds. EXTREMITIES: Normal range of motion. No edema. SKIN: Warm, dry, no rash. NEURO: No focal deficits. Alert and oriented x3. PSYCH: Normal mood and affect. Course Vital Signs Vital signs: Vital Signs Temperature 36.4 C 05/23/21 03:14 Pulse Rate 133 H 05/23/21 03:14 Respiratory Rate 26 H 05/23/21 03:14 Blood Pressure 150/112 H 05/23/21 03:14 Pulse Oximetry 99 05/23/21 03:14 Temperature 36.6 C 05/23/21 04:46 Pulse Rate 106 H 05/23/21 04:46 Respiratory Rate 21 H 05/23/21 04:46 Blood Pressure 137/82 05/23/21 04:46 Pulse Oximetry 98 05/23/21 04:46 Medical Decision Making Vital Signs Vital Signs: Vital Signs Temperature 36.4 C 05/23/21 03:14 Pulse Rate 133 H 05/23/21 03:14 Respiratory Rate 26 H 05/23/21 03:14 Blood Pressure 150/112 H 05/23/21 03:14 Pulse Oximetry 99 05/23/21 03:14 Temperature 36.6 C 05/23/21 04:46 Pulse Rate 106 H 05/23/21 04:46 Respiratory Rate 21 H 05/23/21 04:46 Blood Pressure 137/82 05/23/21 04:46 Pulse Oximetry 98 05/23/21 04:46 Lab Data Result diagrams: 05/23/21 04:15 05/23/21 04:15 Labs: Lab Results 05/23/21 05/23/21 05/23/21 Range/Units 03:40 03:40 03:40 WBC (4.5-10.0) K/mm3 RBC (4.2-5.4) M/mm3 Hgb (12.0-15.0) g/dL Hct (37.0-47.0) % MCV (80-100) fl MCH (26-34) pg MCHC (32-36) g/dl RDW (11.5-14.5) % Plt Count (150-375) k/mm3 MPV (7.4-10.4) fl Immature Gran % (Auto) (0-0.5) % Neut % (Auto) (45.5-73.1) % Lymph % (Auto) (18.3-44.2) % Boyd % (Auto) (2.6-8.5) % Eos % (Auto) (0-4.4) % Baso % (Auto) (0.2-1.2) % Lymph # (Auto) (0.9-3.2) K/
[2021-05-23] MEDS: LORazepam INJ (*CRX) 2 MG/ML VIAL 1 MG IV PUSH (03:46)
[2021-05-23] MEDS: SODIUM CHLORIDE 0.9% IV 1,000 ML 999 ML IV CONT ×2 (03:46→07:38)
[2021-05-23] MEDS: LORazepam INJ (*CRX) 2 MG/ML VIAL IV PUSH (04:06)
[2021-05-23 04:09] LABS: Add Urine Microscopic? YES; Appearance Urine Cloudy (Clear); Bacteria Urine Trace /hpf; Bilirubin Urine Negative (Negative); Blood Urine Negative (Negative); Color Urine Yellow (Yellow); Glucose Urine UA Negative (Negative); Ketones Urine Negative (Negative); Leukocyte Esterase Ur 1+ LEU/UL (Negative); Mucus Urine Heavy /lpf; Nitrate Urine Positive (Negative); Protein Urine Negative (Negative); RBC Urine 0-2 /hpf (0-2); Squamous Epithelial Cell Urine Many /hpf (Few); Urobilinogen Urine Negative mg/dL (<2.0)
[2021-05-23] MEDS: HALOPERIDOL LACTATE 5 MG/ML VIAL IV PUSH (04:10)
--- NOTE | 2021-05-23 04:17 | PC.NURSE ---
spoke with Chula from [place] poison control. Watch for sedation, agitation, Serotonin Syndrome, QT prolong. Benzo's as needed to keep patient out of rhabdo. Peak in 6 hours, half life 21-54.
[2021-05-23 04:29] LABS: Basophils Percent Auto 0.6 % (0.2-1.2); Eosinophils Absolute Auto 0.1 K/mm3 (0-0.3); Eosinophils Percent Auto 0.7 % (0-4.4); Hemoglobin 12.4 g/dL (12.0-15.0); Immature Granulocyte Absolute 0.03 K/mm3 (0.00-0.031); Immature Granulocyte Percent A 0.4 % (0-0.5); Lymphocytes Absolute Auto 2.49 K/mm3 (0.9-3.2); Lymphocytes Percent Auto 34.6 % (18.3-44.2); Mean Corpuscular HGB Conc 32.6 g/dl (32-36); Mean Corpuscular Hemoglobin 30.2 pg (26-34); Mean Corpuscular Volume 92.5 fl (80-100); Mean Platelet Volume 10.3 fl (7.4-10.4); Monocytes Absolute Auto 0.6 K/mm3 (0.1-0.6); Monocytes Percent Auto 7.8 % (2.6-8.5); Neutrophils Percent Auto 55.9 % (45.5-73.1); Platelet Count Result 265 k/mm3 (150-375); Red Blood Count 4.11 M/mm3 (4.2-5.4); Red Cell Distribution Width 12.4 % (11.5-14.5); White Blood Count 7.2 K/mm3 (4.5-10.0)
[2021-05-23 04:43] LABS: Acetaminophen < 10 ug/mL (10-30); Alanine Aminotransferase 30 U/L (4-35); Albumin Level 4.3 g/dL (3.5-5.1); Alkaline Phosphatase 65 U/L (38-126); Anion Gap 10 mmol/L (8-16); Aspartate Amino Transferase 28 U/L (14-36); Bilirubin,Total 0.4 mg/dL (0.2-1.3); Blood Urea Nitrogen 12 mg/dL (7-17); Calcium 9.5 mg/dL (8.4-10.2); Carbon Dioxide 22 mmol/L (22-30); Chloride 107 mmol/L (98-107); Estimated CRCL calculation 82 ml/min; Estimated Glomerular Filt Rate > 60; Ethanol < 10 mg/dL (<10); Glucose 144 mg/dL (65-110); Potassium 3.5 mmol/L (3.4-5.0); Salicylate < 1.0 mg/dL (2-20); Sodium 139 mmol/L (137-145)
[2021-05-23 04:50] LABS: Barbiturate Screen Urine Negative (Negative); Benzodiazepines Screen Urine Negative (Negative)
[2021-05-23 04:51] LABS: Cannabinoid Screen Urine Negative (Negative); Cocaine Screen Urine Negative (Negative); Methadone Screen Urine Negative (Negative); Opiate Screen Urine Negative (Negative); Phencyclidine Screen Urine Negative (Negative)
[2021-05-23 04:59] LABS: Creatine Kinase 137 U/L (30-135)
[2021-05-23 05:12] LABS: Amphetamine Screen Urine Positive (Negative)
[2021-05-23] MEDS: SODIUM CHLORIDE 0.9% IV 1,000 ML 125 ML IV CONT ×3 (06:12→22:42)
--- NOTE | 2021-05-23 06:34 | ADMGEN ---
This patient, Guerline Rodrigez, was admitted to Intensive Care Unit-8 at 0630 on 05/23/2021. Patient/family oriented to hospital policies and general routines including ID bracelet, bed and alarms, visiting hours, pain management, procedures, bathroom and other care routines, personal items, smoking policy, room service/diet, and visiting hours. Information on how to activate the Rapid Response Team has been discussed. Patient/Family are encouraged to report perceived risks to care and to ask questions if they do not understand what they are told or what they should do.
--- NOTE | 2021-05-23 06:56 | PC.NURSE ---
Poison Control called for update, recommends to monitor K, Mag, and repeat EKG in a couple of hours.
[2021-05-23 07:12] LABS: Magnesium 2.1 mg/dL (1.6-2.3)
--- NOTE | 2021-05-23 11:00 | ECG_ITS ---
Measurements Intervals [place] Rate: 85 P: 48 NC: 128 QRS: 30 QRSD: 85 T: 35 QT: 394 QTc: 469 Interpretive Statements SINUS RHYTHM MINIMAL Q WAVES- HIGH LATERAL LEADS BORDERLINE T WAVE ABNORMALITY- ANTERIOR LEADS BASELINE WANDER- II, III, V1 BORDERLINE ECG Electronically Signed On 05-23-2021 11:54:42 CDT by Chirag Almodovar D.O.
[2021-05-23 11:23] LABS: Anion Gap 8 mmol/L (8-16); Blood Urea Nitrogen 7 mg/dL (7-17); Calcium 8.3 mg/dL (8.4-10.2); Carbon Dioxide 24 mmol/L (22-30); Chloride 106 mmol/L (98-107); Estimated CRCL calculation 95 ml/min; Estimated Glomerular Filt Rate > 60; Glucose 96 mg/dL (65-110); Magnesium 2.1 mg/dL (1.6-2.3); Potassium 3.7 mmol/L (3.4-5.0); Sodium 138 mmol/L (137-145)
--- NOTE | 2021-05-23 13:03 | WPDCNINT ---
Assessment and Plan Assessment and plan (1) Intentional drug overdose: Code(s): T50.902A - Poisoning by unspecified drugs, medicaments and biological substances, intentional self-harm, initial encounter Status: Acute Assessment and Plan: Patient presented the ED after ingesting olanzapine 10 mg x 15 pills. - Patient was agitated and combative in the ER so was given Haldol and Ativan which can and knocked her out and patient has been somnolent since. -poison Control has been notified, recommended supportive management, monitor QT prolongation, torsades (2) Suicidal behavior: Code(s): R45.89 - Other symptoms and signs involving emotional state Status: Acute Assessment and Plan: Patient has history of depression and anxiety and recent suicidal behavior at the end of April 2021. Patient was also transferred to [facility] for psychiatric care -once patient is stable and awake will have crisis management evaluate the patient along with care coordination -continue to monitor for above-mentioned issues (3) Hypokalemia: Code(s): E87.6 - Hypokalemia Status: Acute Assessment and Plan: Resolved after being treated in the ER (4) Depression with anxiety: Code(s): F41.8 - Other specified anxiety disorders Status: Acute Assessment and Plan: Chronic issues, patient will need some form of psychiatric help/care. Additional Plan Code status: Full code Critical care time spent: 39 minute This dictation may have been done utilizing a voice recognition system. Attempts have been made to correct errors. However, there may be uncorrected grammatical, spelling, and recognition errors present. Due to a high probability of clinically significant, life threatening deterioration, the patient required my highest level of preparedness to intervene emergently and I personally spent this critical care time directly and personally managing the patient. This critical care time included obtaining a history; examining the patient; pulse oximetry; ordering and review of studies; arranging urgent treatment with development of a management plan; evaluation of patient's response to treatment; frequent reassessment; and discussions with other providers. It was exclusive of separately billable procedures and treating other patients and teaching time. Please see Assessment and Plan section and the rest of the note for further information on patient assessment and treatment Investment Accountant Consult Note Consult date: 05/23/21 Time Seen: 07:17 HPI: Guerline Monson Elia is a 25 year old female with past medical history of anxiety/depression was recently in the hospital for drug overdose and suicidal ideation. On 05/13/2021 patient was admitted to [facility] after taking trazodone 100 mg x 15 pills. Patient was transferred to [facility] for psychiatric management on 05/16/2021. Patient returned to [facility] ER on 05/23/2021 the any hours after ingesting olanzapine 10 mg x 15 pills in an attempt to harm herself. Patient states that she has been depressed and reports feeling anxious and upset because no one will spend time with her. She was doing fine in the ER but later got agitated and combative and was given Ativan and Haldol. Patient was transferred to the ICU for further management Patient seen examined the ICU, is somnolent and sleeping, does not open her eyes to name of follows simple command. Patient is hemodynamically stable. Patient received 1 L of IV fluid bolus in the ER and I added a 2 L IV fluid bolus to be given in the ICU this morning. Patient is on room air with good O2 sats, afebrile. In will to provide any history at this time Review of Systems Review of Systems: ROS unobtainable: Yes unobtainable due to medical condition and unobtainable due to mental status PMFSH Past Medical History Medical History Anx
--- NOTE | 2021-05-23 13:19 | PC.NURSE ---
Vicki from Poison Control updated on most recent 12 lead EKG results and lab values. No further recommendations at this time. Continue to monitor per previous recommendations.
--- NOTE | 2021-05-23 14:53 | PM.IMHP ---
H&P: HPI History of Present Illness Date/Time: 05/23/21 14:53 patient is a 25-year-old female past medical history of anxiety /depression was brought to the hospital after intentional overdose. This is the 2nd occurrence within the last week And 3rd since October as per the aunt who was sitting bedside. patient was unable to provide history as she was too somnolent and hysterical. on 05/13/2021 patient ingested 15 pills of trazodone and called EMS 15 minutes afterwards. She was monitored for the suicide attempt and then admitted to [facility] psychiatric inpatient unit voluntarily. after few days she went home with prescription for Zyprexa. She was taking Zyprexa as prescribed for to 3 days and was frustrated that they where not helping so then she overdosed on 15 pills of Zyprexa 10 mg. her on tried to explain her that it will take some time for these medications to start working however patient was getting inpatient. suicidal behavior has been associated with issues with boyfriend. she has been agitated in the ER was given Haldol and Ativan as well. Poison control was consulted who recommended supportive care and monitoring for QT prolongation. she is also being seen by the ged instructor. in the ER she was treated for hypokalemia as well. Patient was be admitted for acute intoxication of Zyprexa, medical clearance for psychiatric evaluation with crisis. Aunt bedside who corroborated with history seen on medical documentation. patient is otherwise stable and admitted to ICU for close monitoring with sitter. Chief Complaint: intentional overdose suicide attempt Review of Systems Review of Systems: ROS unobtainable: Yes unobtainable due to medical condition PMFSH Past Medical History Medical History (Updated 05/23/21 @ 16:29 by Fred Patton DO) Anxiety Depression Suicide attempt by drug overdose Surgical History Surgical History History of cholecystectomy Social History Social History Smoking status: Never smoker Alcohol intake: unknown Substance use type: does not use Other substance usage details: URINE DRUG SCREEN POSITIVE, REFUSES TO ANSWER Gender identity (if verbalized by the patient): Female Spiritual care concerns: No Meds Home Medications and Allergies Home Medications Medication Instructions Recorded Confirmed Type alprazolam 0.5 mg PO PRN 05/13/21 05/13/21 History amitriptyline 10 mg PO HS 05/13/21 05/13/21 History duloxetine 60 mg PO DAILY 05/13/21 05/23/21 History trazodone 200 mg PO HS 05/13/21 05/13/21 History olanzapine 15 mg PO HS 05/23/21 05/23/21 History Allergies Allergy/AdvReac Type Severity Reaction Status Date / Time No Known Allergies Allergy Verified 01/16/21 13:57 Vital Signs Vital Signs - 24 hr 05/23/21 03:14 05/23/21 04:46 05/23/21 05:26 Temperature 36.4 C 36.6 C Pulse Rate 133 H 106 H 98 Respiratory Rate 26 H 21 H 18 Blood Pressure 150/112 H 137/82 136/79 Pulse Oximetry 99 98 98 05/23/21 06:30 05/23/21 06:46 05/23/21 08:00 Temperature 36.0 C L 36.3 C L Pulse Rate 92 90 88 Respiratory Rate 13 14 15 Blood Pressure 137/97 H 138/87 Pulse Oximetry 100 100 100 05/23/21 08:58 05/23/21 09:01 05/23/21 10:00 Temperature 36.4 C L Pulse Rate 89 96 Respiratory Rate 14 Blood Pressure 132/94 H Pulse Oximetry 100 100 05/23/21 10:28 05/23/21 11:01 05/23/21 12:00 Temperature 36.4 C 36.4 C 36.4 C Pulse Rate 96 87 85 Respiratory Rate 15 12 15 Blood Pressure 139/84 134/101 H 139/110 H Pulse Oximetry 100 100 100 05/23/21 14:00 Temperature 35.9 C L Pulse Rate 97 Respiratory Rate 14 Blood Pressure 138/110 H Pulse Oximetry 100 Exam Narrative: - GENERAL: Hysterical woman tearful and unable to be oriented. She is clearly confused falling asleep and then waking up in a repeated pattern. Uncooperative. -
--- NOTE | 2021-05-23 22:17 | PC.NURSE ---
Poison Control updated on patient's recent vitals, continue to monitor previous recommendations.
[2021-05-24] VITALS (8 sets, daily range): BP systolic 118–157; BP diastolic 82–131; PULSE 79–98; RESP 12–19; TEMP 36.3–36.6; O2SAT 98–100
[2021-05-24 04:07] LABS: Magnesium 2.2 mg/dL (1.6-2.3)
[2021-05-24 04:10] LABS: Anion Gap 5 mmol/L (8-16); Blood Urea Nitrogen 3 mg/dL (7-17); Calcium 8.8 mg/dL (8.4-10.2); Carbon Dioxide 25 mmol/L (22-30); Chloride 110 mmol/L (98-107); Estimated CRCL calculation 111 ml/min; Estimated Glomerular Filt Rate > 60; Glucose 86 mg/dL (65-110); Potassium 3.3 mmol/L (3.4-5.0); Sodium 140 mmol/L (137-145)
--- NOTE | 2021-05-24 08:00 | ECG_ITS ---
Measurements Intervals [place] Rate: 88 P: 46 IN: 122 QRS: 21 QRSD: 81 T: 16 QT: 371 QTc: 449 Interpretive Statements SINUS RHYTHM NORMAL ECG Electronically Signed On 05-24-2021 10:01:12 CDT by Chirag Almodovar D.O.
[2021-05-24] MEDS: SODIUM CHLORIDE 0.9% IV 1,000 ML 125 ML IV CONT (10:51)
[2021-05-24 11:34] LABS: EDCOVIDSCREEN Negative (Negative)
--- NOTE | 2021-05-24 12:46 | WPDINTPN ---
Progress Note: A&P Assessment and Plan (1) Intentional drug overdose: Code(s): T50.902A - Poisoning by unspecified drugs, medicaments and biological substances, intentional self-harm, initial encounter Status: Acute Assessment and Plan: Patient presented the ED after ingesting olanzapine 10 mg x 15 pills. - Patient was agitated and combative in the ER so was given Haldol and Ativan which can and knocked her out and patient has been somnolent since. -poison Control has signed off the case, recommended supportive management, monitor QT prolongation, torsades -will and the pain has a long half life from 27-51 hours, this may still be lingering in the system. -patient is medically stable but slightly disoriented, crisis management requested to evaluate the patient another day is a medical status patient (2) Suicidal behavior: Code(s): R45.89 - Other symptoms and signs involving emotional state Status: Acute Assessment and Plan: Patient has history of depression and anxiety and recent suicidal behavior at the end of April 2021. Patient was also transferred to [facility] for psychiatric care -patient is medically stable, but due to slight confusion and disorientation crisis management requests that patient remain for another day has a medical status patient in the hospital (3) Hypokalemia: Code(s): E87.6 - Hypokalemia Status: Acute Assessment and Plan: Replace potassium (4) Depression with anxiety: Code(s): F41.8 - Other specified anxiety disorders Status: Acute Assessment and Plan: Chronic issues, patient will need some form of psychiatric help/care. Additional Plan Discussed with mother in multidisciplinary rounds, updated with patient's condition and plan of care. Mother was of the view that she has had several attempts in [place] as well as in [place]., I answered all questions. She will be meeting with care coordination and crisis management Code status: Full code Critical care time spent: 32 minute This dictation may have been done utilizing a voice recognition system. Attempts have been made to correct errors. However, there may be uncorrected grammatical, spelling, and recognition errors present. Due to a high probability of clinically significant, life threatening deterioration, the patient required my highest level of preparedness to intervene emergently and I personally spent this critical care time directly and personally managing the patient. This critical care time included obtaining a history; examining the patient; pulse oximetry; ordering and review of studies; arranging urgent treatment with development of a management plan; evaluation of patient's response to treatment; frequent reassessment; and discussions with other providers. It was exclusive of separately billable procedures and treating other patients and teaching time. Please see Assessment and Plan section and the rest of the note for further information on patient assessment and treatment Subjective Date/time seen: 05/24/21 12:46 Interval history: Reason for consult: 25 year old female with past medical history of anxiety/depression was recently in the hospital for drug overdose and suicidal ideation. On 05/13/2021 patient was admitted to [facility] after taking trazodone 100 mg x 15 pills. Patient was transferred to [facility] for psychiatric management on 05/16/2021. Patient returned to [facility] ER on 05/23/2021 the any hours after ingesting olanzapine 10 mg x 15 pills in an attempt to harm herself. Patient seen examined this morning. Patient is more awake, oriented times 1-2, she can then is tangential and does not answer questions appropriately. She is to be a little disoriented and confused. Patient has been sleeping most of the day yesterday and through the night. States she is hungry, has been tolerating p.o. intake. Patient is afebrile, hemodynamically
[2021-05-25] VITALS: BP 124/89; PULSE 87; RESP 17; TEMP 36.4; O2SAT 98
[2021-05-25 05:05] LABS: Basophils Percent Auto 0.5 % (0.2-1.2); Eosinophils Absolute Auto 0.1 K/mm3 (0-0.3); Eosinophils Percent Auto 2.3 % (0-4.4); Hematocrit 37.8 % (37.0-47.0); Hemoglobin 12.6 g/dL (12.0-15.0); Immature Granulocyte Absolute 0.01 K/mm3 (0.00-0.031); Immature Granulocyte Percent A 0.2 % (0-0.5); Lymphocytes Absolute Auto 2.33 K/mm3 (0.9-3.2); Lymphocytes Percent Auto 38.7 % (18.3-44.2); Mean Corpuscular HGB Conc 33.3 g/dl (32-36); Mean Corpuscular Hemoglobin 29.9 pg (26-34); Mean Corpuscular Volume 89.6 fl (80-100); Mean Platelet Volume 10.2 fl (7.4-10.4); Monocytes Absolute Auto 0.4 K/mm3 (0.1-0.6); Monocytes Percent Auto 6.1 % (2.6-8.5); Neutrophils Absolute Auto 3.1 K/mm3 (1.3-6.7); Neutrophils Percent Auto 52.2 % (45.5-73.1); Platelet Count Result 261 k/mm3 (150-375); Red Blood Count 4.22 M/mm3 (4.2-5.4); Red Cell Distribution Width 12.1 % (11.5-14.5)
[2021-05-25 05:14] LABS: Anion Gap 9 mmol/L (8-16); Blood Urea Nitrogen 7 mg/dL (7-17); Calcium 9.1 mg/dL (8.4-10.2); Carbon Dioxide 24 mmol/L (22-30); Chloride 107 mmol/L (98-107); Estimated CRCL calculation 95 ml/min; Estimated Glomerular Filt Rate > 60; Glucose 103 mg/dL (65-110); Magnesium 2.1 mg/dL (1.6-2.3); Phosphorus 5.1 mg/dL (2.5-4.5); Potassium 3.6 mmol/L (3.4-5.0); Sodium 140 mmol/L (137-145)
[2021-05-25 08:00] VITALS: BP 141/95; PULSE 90; RESP 16; TEMP 36.4; O2SAT 97
[2021-05-25] MEDS: SODIUM CHLORIDE 0.9% IV 1,000 ML 75 ML IV CONT ×2 (10:14→23:28)
--- NOTE | 2021-05-25 14:03 | PM.IMPN ---
Progress Note: A&P Assessment and Plan (1) Suicide attempt by drug overdose: Code(s): T50.902A - Poisoning by unspecified drugs, medicaments and biological substances, intentional self-harm, initial encounter Status: Acute Assessment and Plan: - Overdose on Zyprexa 10 mg x 15 tablets. continue monitoring on telemetry for QTC - once medically stable will have assessment by crisis for inpatient psychiatric care. perhaps we can try for a different facility then [facility] because she was recently evaluated there and was discharged relatively quickly with no improvement - poison control recommended supportive management, monitor QTc prolongation, torsades - somnolent today, will re-evaluate tomorrow for Crisis for psychiatric placement - suicide precautions while inpatient -zofran for nausea -continue IVF today while not taking in PO, will re-evaluate tomorrow. Urinating well, [place] for strict I/Os. (2) Depression with anxiety: Code(s): F41.8 - Other specified anxiety disorders Status: Acute Assessment and Plan: -see above, hold home zyprexa with overdose Additional Plan Diet: regular DVT ppx: low risk Code status: Full code Disposition: Crisis to evaluate after medical clear, will re-evaluate tomorrow as she is somnolent today Time Spent With Patient Time with patient: 15 - 25 minutes Subjective Date/time seen: 05/25/21 14:03 Patient examined. She appears comfortable. She is sleeping most of the day. Patient was too somnolent for evaluation today, may try again tomorrow. she has been on IV fluids to help washout the Zyprexa. No new problems overnight. Review of Systems Review of Systems: All systems reviewed & are unremarkable except as noted in HPI and below Exam Narrative: - GENERAL: solmnolent, woman, breathing comfortably, in no acute distress. Arousable but drowsy - EYES: anicteric, PERRL - HENT: Moist mucous membranes. - LUNGS: Clear to auscultation bilaterally, no wheezing, rhonchi, or rales. - CARDIOVASCULAR: Regular rate and rhythm. No murmur. No JVD. - ABDOMEN: Soft, non-tender and non-distended. No palpable masses. - : wearing adult diaper - EXTREMITIES: No edema. Peripheral pulses 2+. Non-tender. - NEUROLOGIC: no obvious focal neurological deficits, unable to assess proper neuro exam as patient was not following directions. uncooperative - PSYCHIATRIC: Sleeping, easily arousable. Nurses note patient was talking to family when they came by. - SKIN: No rashes or lesions. Warm. - LYMPH: No cervical lymphadenopathy. Objective Data Vital Signs Vital Signs: Vital Signs - 24 hr 05/24/21 16:00 05/24/21 20:00 05/25/21 00:00 Temperature 36.6 C 36.4 C Pulse Rate 98 87 Respiratory Rate 16 17 Blood Pressure 152/104 H 124/89 Pulse Oximetry 98 100 98 05/25/21 08:00 Temperature 36.4 C Pulse Rate 90 Respiratory Rate 16 Blood Pressure 141/95 H Pulse Oximetry 97 Intake/Output Intake/Output: Intake & Output 05/22/21 05/23/21 05/24/21 05/25/21 23:59 23:59 23:59 23:59 Intake Total 4000 2829 931 Output Total 1000 4450 600 Balance 3000 -1621 331 Meds/Results Medications: Active Medications Generic Name Dose Route Start Last Admin Trade Name Freq PRN Reason Stop Dose Admin Sodium Chloride 1,000 mls @ 75 mls/hr 05/23/21 05:10 05/25/21 10:14 Normal Saline Iv IV CONT 75 mls/hr .[id number] Administration Ondansetron HCl 4 mg 05/23/21 05:10 Ondansetron Inj 4 Mg/2 Ml Vial IV PUSH Q4H PRN Nausea Labs Labs: Laboratory Results - last 24 hr 05/25/21 05/25/21 04:37 04:37 WBC 6.0 RBC 4.22 Hgb 12.6 Hct 37.8 MCV 89.6 MCH 29.9 MCHC 33.3 RDW 12.1 Plt Count 261 MPV 10.2 Immature Gran % (Auto) 0.2 Neut % (Auto) 52.2 Lymph % (Auto) 38.7 [place] % (Auto) 6.1 Eos % (Auto) 2.3 Baso % (Auto) 0.5 Lymph # (Auto) 2.33 [place] # (Auto) 0.4 Eos # (Auto) 0.1 Baso # (Auto) 0.0 Abs Immat Gran (auto)
[2021-05-25 16:00] VITALS: BP 137/94; PULSE 69; RESP 14; TEMP 36.4; O2SAT 99
[2021-05-25 19:33] VITALS: O2SAT 97
[2021-05-25 23:46] VITALS: BP 133/104; PULSE 61; RESP 17; TEMP 36.6; O2SAT 98
[2021-05-26 04:59] LABS: Anion Gap 7 mmol/L (8-16); Blood Urea Nitrogen 9 mg/dL (7-17); Calcium 9.2 mg/dL (8.4-10.2); Carbon Dioxide 23 mmol/L (22-30); Chloride 108 mmol/L (98-107); Estimated CRCL calculation 111 ml/min; Estimated Glomerular Filt Rate > 60; Glucose 85 mg/dL (65-110); Magnesium 2.1 mg/dL (1.6-2.3); Potassium 3.8 mmol/L (3.4-5.0); Sodium 138 mmol/L (137-145)
[2021-05-26 08:00] VITALS: BP 127/85; PULSE 72; RESP 18; TEMP 36.5; O2SAT 98
--- NOTE | 2021-05-26 09:35 | PM.IMPN ---
Progress Note: A&P Assessment and Plan (1) E. coli UTI: Code(s): N39.0 - Urinary tract infection, site not specified; B96.20 - Unspecified Escherichia coli [E. coli] as the cause of diseases classified elsewhere Status: Acute Assessment and Plan: Patient urine cultures came back positive for E coli UTI -started patient on ceftriaxone -also be the reason the patient is somnolent secondary to infection (2) Intentional drug overdose: Code(s): T50.902A - Poisoning by unspecified drugs, medicaments and biological substances, intentional self-harm, initial encounter Status: Acute Assessment and Plan: Patient presented the ED after ingesting olanzapine 10 mg x 15 pills. - Patient was agitated and combative in the ER so was given Haldol and Ativan which can and knocked her out and patient has been somnolent since. -poison Control has signed off the case, recommended supportive management, monitor QT prolongation, torsades -olanzapine has a long half-life but it should be out of her system -patient is medically stable , crisis management requested to evaluate on 05/27/2021 for placement (3) Suicidal behavior: Code(s): R45.89 - Other symptoms and signs involving emotional state Status: Acute Assessment and Plan: Patient has history of depression and anxiety and recent suicidal behavior at the end of April 2021. Patient was also transferred to [facility] for psychiatric care -patient is medically stable, currently a med-surg patient (4) Hypokalemia: Code(s): E87.6 - Hypokalemia Status: Acute Assessment and Plan: Resolved (5) Depression with anxiety: Code(s): F41.8 - Other specified anxiety disorders Status: Acute Assessment and Plan: Chronic issues, patient will need some form of psychiatric help/care. Additional Plan Discussed with mother and updated her with patient's condition and plan of care. Code status: Full code This dictation may have been done utilizing a voice recognition system. Attempts have been made to correct errors. However, there may be uncorrected grammatical, spelling, and recognition errors present. Due to a high probability of clinically significant, life threatening deterioration, the patient required my highest level of preparedness to intervene emergently and I personally spent this critical care time directly and personally managing the patient. This critical care time included obtaining a history; examining the patient; pulse oximetry; ordering and review of studies; arranging urgent treatment with development of a management plan; evaluation of patient's response to treatment; frequent reassessment; and discussions with other providers. It was exclusive of separately billable procedures and treating other patients and teaching time. Please see Assessment and Plan section and the rest of the note for further information on patient assessment and treatment Subjective Date/time seen: 05/26/21 09:35 Interval history: Reason for consult: 25 year old female with past medical history of anxiety/depression was recently in the hospital for drug overdose and suicidal ideation. On 05/13/2021 patient was admitted to [facility] after taking trazodone 100 mg x 15 pills. Patient was transferred to [facility] for psychiatric management on 05/16/2021. Patient returned to [facility] ER on 05/23/2021 the any hours after ingesting olanzapine 10 mg x 15 pills in an attempt to harm herself. 05/26/2021: I am seeing the patient the hospitalist group, patient is awake, alert, oriented but somnolent. Patient is able to answer all questions, is tolerating a diet, denies any chest pain, shortness of breath, abdominal pain, nausea, vomiting, diarrhea. Patient's urine cultures came back positive for E coli Review of Systems Review of Systems: All systems reviewed & are unremarkable except as noted in HPI and
[2021-05-26] MEDS: SODIUM CHLORIDE 0.9% IV 1,000 ML 75 ML IV CONT (12:48)
[2021-05-26 16:00] VITALS: BP 134/93; PULSE 91; RESP 12; TEMP 36.6; O2SAT 99
[2021-05-26 20:00] VITALS: PULSE 88; RESP 15; O2SAT 98
[2021-05-27 04:00] VITALS: BP 143/108; PULSE 84; RESP 18; TEMP 36.8; O2SAT 99
[2021-05-27 08:00] VITALS: BP 137/100; PULSE 67; RESP 18; TEMP 36.7; O2SAT 100; O2SAT 99
--- NOTE | 2021-05-27 12:55 | PM.IMPN ---
Progress Note: A&P Assessment and Plan (1) E. coli UTI: Code(s): N39.0 - Urinary tract infection, site not specified; B96.20 - Unspecified Escherichia coli [E. coli] as the cause of diseases classified elsewhere Status: Acute Assessment and Plan: Patient urine cultures came back positive for E coli UTI -continue ceftriaxone (2) Intentional drug overdose: Code(s): T50.902A - Poisoning by unspecified drugs, medicaments and biological substances, intentional self-harm, initial encounter Status: Acute Assessment and Plan: Patient presented the ED after ingesting olanzapine 10 mg x 15 pills. - Patient was agitated and combative in the ER so was given Haldol and Ativan which can and knocked her out and patient has been somnolent since. -poison Control has signed off the case, recommended supportive management, monitor QT prolongation, torsades -olanzapine has a long half-life but it should be out of her system -patient is medically stable, will have care coordination crisis management evaluated the patient for placement to a psych facility (3) Suicidal behavior: Code(s): R45.89 - Other symptoms and signs involving emotional state Status: Acute Assessment and Plan: Patient has history of depression and anxiety and recent suicidal behavior at the end of April 2021. Patient was also transferred to [facility] for psychiatric care -patient is medically stable, currently a med-surg patient (4) Hypokalemia: Code(s): E87.6 - Hypokalemia Status: Acute Assessment and Plan: Resolved (5) Depression with anxiety: Code(s): F41.8 - Other specified anxiety disorders Status: Acute Assessment and Plan: Chronic issues, patient will need some form of psychiatric help/care. Additional Plan Discussed with mother and updated her with patient's condition and plan of care. Code status: Full code This dictation may have been done utilizing a voice recognition system. Attempts have been made to correct errors. However, there may be uncorrected grammatical, spelling, and recognition errors present. Due to a high probability of clinically significant, life threatening deterioration, the patient required my highest level of preparedness to intervene emergently and I personally spent this critical care time directly and personally managing the patient. This critical care time included obtaining a history; examining the patient; pulse oximetry; ordering and review of studies; arranging urgent treatment with development of a management plan; evaluation of patient's response to treatment; frequent reassessment; and discussions with other providers. It was exclusive of separately billable procedures and treating other patients and teaching time. Please see Assessment and Plan section and the rest of the note for further information on patient assessment and treatment Subjective Date/time seen: 05/27/21 12:55 Interval history: Reason for consult: 25 year old female with past medical history of anxiety/depression was recently in the hospital for drug overdose and suicidal ideation. On 05/13/2021 patient was admitted to [facility] after taking trazodone 100 mg x 15 pills. Patient was transferred to [facility] for psychiatric management on 05/16/2021. Patient returned to [facility] ER on 05/23/2021 the any hours after ingesting olanzapine 10 mg x 15 pills in an attempt to harm herself. 05/27/2021: Patient is totally perked up and awake, answering questions, states she feels much better, urine output has been good, tolerating p.o. diet. Garay catheter is out. Patient has been walking to the washroom. Denies any shortness of breath, chest pain, abdominal pain, nausea, vomiting, diarrhea, fevers, chills. Review of Systems Review of Systems: ROS unobtainable: Yes unobtainable due to medical condition and unobtainable due to mental status Exam Const:
--- NOTE | 2021-05-27 14:32 | ECG_ITS ---
Measurements Intervals [place] Rate: 74 P: 44 [place]: 130 QRS: 20 QRSD: 86 T: 24 QT: 393 QTc: 436 Interpretive Statements SINUS RHYTHM NORMAL ECG Electronically Signed On 05-27-2021 16:47:52 CDT by Chirag Almodovar D.O.
--- NOTE | 2021-05-27 15:18 | PM.TDS ---
Transfer Discharge Sum: Prov Provider Date of admission: 05/23/21 10:31 Primary care physician: PHYSICIAN NOT ON STAFF Admitting clinician: Fina Viveros MD Consults: 05/23/21 05:12 Consult to Physician Routine Comment: Consulting Provider: Sirisha Mata Reason for consultation: overdose patient, in the icu Has provider been notified: Yes DS: Admitting Diagnosis Admitting Diagnosis Intentional overdose of Zyprexa, suicide behavior DS: Discharge Diagnosis Discharge Diagnosis (1) Suicide attempt by drug overdose: Code(s): T50.902A - Poisoning by unspecified drugs, medicaments and biological substances, intentional self-harm, initial encounter Status: Acute Assessment and Plan: -Patient ingested 15 tablets of Zyprexa 10 mg -she was monitored in ICU for QT prolongation, poison control was consulted -patient was medically stable after treatment of IV fluids and supportive care -examined by crisis recommended for inpatient psychiatric care: Disposition [facility] unit (2) E. coli UTI: Code(s): N39.0 - Urinary tract infection, site not specified; B96.20 - Unspecified Escherichia coli [E. coli] as the cause of diseases classified elsewhere Status: Acute Assessment and Plan: Patient was treated with ceftriaxone (3) Depression with anxiety: Code(s): F41.8 - Other specified anxiety disorders Status: Acute Assessment and Plan: Chronic issues with follow-up with Psychiatry (4) Hypokalemia: Code(s): E87.6 - Hypokalemia Status: Acute Assessment and Plan: Resolved Transfer Discharge Sum: Med Medications Active and Home Medications: Home Medications alprazolam 0.5 mg PO TID PRN 05/13/21 [History Confirmed 05/24/21] duloxetine 60 mg PO DAILY 05/13/21 [History Confirmed 05/23/21] trazodone 200 mg PO HS 05/13/21 [History Confirmed 05/24/21] olanzapine 15 mg PO HS 05/23/21 [History Confirmed 05/23/21] Active Medications Sodium Chloride (Normal Saline Iv) 1,000 mls @ 75 mls/hr IV CONT .[id number] TAZ Last Infusion: 05/27/21 06:05 Dose: Infused Documented by: Ceftriaxone Sodium/Dextrose (Rocephin 1 Gm/D5w 50 Ml) 1 gm in 50 mls @ 100 mls/hr IVPB Q24H TAZ Last Infusion: 05/27/21 10:26 Dose: Infused Documented by: Ondansetron HCl (Ondansetron Inj 4 Mg/2 Ml Vial) 4 mg IV PUSH Q4H PRN PRN Reason: Nausea Transfer Discharge Sum: Hosp Hospital Course Hospital course: Guerline Rodrigez is a 25 year old female with past medical history of anxiety/depression who presents to ED from a suicide attempt ingesting Zyprexa. She recently had overdosed on 15 tablets of trazodone on 05/13, was evaluated in our ICU. She was medically clear, and voluntarily was admitted to [facility]. She left after a few days and subsequently overdosed again on Zyprexa 15 tablets on 05/23. She was readmitted to our ICU. After couple days IV fluids her mentation improved. Poison control had been consulted recommending supportive care. Of note she was given Rocephin for an E coli UTI. After being medically cleared she was re-evaluated by crisis. She will now go to [facility] involuntarily. At time of discharge patient's labs, vitals stable, patient is stable for discharge. Time Spent with Patient Time attestation: Total time spent providing and/or coordinating transfer services:35 Exam Narrative: - GENERAL: No acute distress. Well-nourished. - EYES: EOMI. Anicteric. - HENT: Moist mucous membranes. No scleral icterus. - LUNGS: Clear to auscultation bilaterally, no wheezing, rhonchi, or rales. - CARDIOVASCULAR: Regular rate and rhythm. No murmur. No JVD. - ABDOMEN: Soft, non-tender and non-distended. No palpable masses. - EXTREMITIES: No edema. Peripheral pulses 2+. Non-tender. - NEUROLOGIC: No focal neurological deficits. CN II-XII grossly intact. - PSYCHIATRIC: Awake, Alert and oriented. Appr
== END 2021-05-27 16:10 ==
LOC: ANHED 05:13 → ANHICU 05-24 14:48
PROVIDERS: Internal Medicine; Admitting Provider Internal Medicine; Emergency Provider Emergency Medicine; Visit Provider Student in an Organized Health Care Education/Training Program
DX: T43.592A Poisoning by other antipsychotics and neuroleptics, intentional self-harm, initial encounter (principal); N39.0 Urinary tract infection, site not specified; B96.20 Unspecified Escherichia coli [E. coli] as the cause of diseases classified elsewhere; R45.89 Other symptoms and signs involving emotional state; E87.6 Hypokalemia; F41.8 Other specified anxiety disorders; Z20.822 Contact with and (suspected) exposure to COVID-19
CPT/HCPCS: 36415; 80048; 80053; 80307; 81001; 81025; 82550; 83735; 84100; 84443; 85025; 87077; 87086; 87088; 87186; 87426; 93005; 96360; 96361; 96365; 96366; 96374; 96375; 99285; C9803; G0378; J0696; J1630; J2060; J3480; J7030

== ENCOUNTER 2021-06-09 16:09 | Inpatient (IN) | payer OTHER, SELFPAY ==
[2021-06-09] VITALS (24 sets, daily range): BP systolic 77–127; BP diastolic 51–90; PULSE 88–115; RESP 9–18; TEMP 36.6–36.8; O2SAT 93–100
--- NOTE | ~2021-06-09 | XR_ITS ---
EXAMINATION: XR chest 1V portable EXAM DATE: 06/10/2021 10:09 INDICATION: Respiratory Failure. TECHNIQUE: Portable AP frontal chest x-ray was obtained. Comparison is made to prior examination from 06/09. FINDINGS: Endotracheal tube tip is 2-3 centimeters above the matt. There is a nasogastric tube seen with tip collimated off the study, but below the left hemidiaphragm. Cholecystectomy clips. Compared to prior exam endotracheal tube position has normalized and there has been reexpansion of th e left lung. There has been interval development of segmental bilateral lower lobe airspace disease w hich could be pneumonia, aspiration pneumonia and atelectasis. No pneumothorax or pleural effusion. C ardiomediastinal silhouette is normal. There are no osseous abnormalities identified. IMPRESSION: 1. Development of segmental bilateral lower lobe opacities most consistent with pneumonia or aspirat ion pneumonia and atelectasis. 2. Tubes in position. Reviewed, dictated and finalized at location A. IMPRESSION: 1. Development of segmental bilateral lower lobe opacities most consistent wit h pneumonia or aspiration pneumonia and atelectasis. 2. Tubes in position.
--- NOTE | ~2021-06-09 | XR_ITS ---
EXAMINATION: XR chest 1V portable EXAM DATE: 06/11/2021 05:40 INDICATION: Respiratory failure. TECHNIQUE: Portable AP frontal chest x-ray was obtained. Comparison is made to prior examination from 06/10. FINDINGS: Endotracheal tube tip is 3 centimeters above the matt. There is a nasogastric tube seen with tip collimated off the study, but below the left hemidiaphragm. Segmental bilateral lower lobe airspace disease most consistent with atelectasis and pneumonia or asp iration pneumonia There are no sizable pleural effusions. There is no pneumothorax suspected. Ca rdiomediastinal silhouette is normal. The bones and soft tissues are unremarkable. There is no significant interval change compared to prior exam. IMPRESSION: 1. Tubes in position 2. Bibasilar airspace disease most likely atelectasis and pneumonia or aspiration pneumonia. Reviewed, dictated and finalized at location A. IMPRESSION: 1. Tubes in position 2. Bibasilar airspace disease most likely atelectasis and pneumonia or aspirat ion pneumonia.
--- NOTE | ~2021-06-09 | XR_ITS ---
EXAMINATION: XR chest ET placement EXAM DATE: 06/09/2021 23:55 INDICATION: ET placement. TECHNIQUE: Portable AP frontal chest x-ray was obtained. Comparison is made to prior examination from 05/13/2021. FINDINGS: Endotracheal tube is into the right mainstem bronchus. Notation was made on the emergency r oom blue sheet that the endotracheal tube was pulled back 3 cm after physician reviewed this x-ray. There is left-sided volume loss indicating partial collapse of the left lung. Feeding tube is overlying expected position. Cholecystectomy clips. Right lung is clear. Normal heart size and no appreciable pleural effusion. No osseous abnormalities seen in this skeletally immature patient. IMPRESSION: Endotracheal tube in right mainstem with partial collapse of left lung; reportedly this w as retracted by emergency room physician. Consider verifying current position. Reviewed, dictated and finalized at location A. IMPRESSION: Endotracheal tube in right mainstem with partial collapse of left l regan; reportedly this was retracted by emergency room physician. Consider verify ing current position.
--- NOTE | ~2021-06-09 | XR_ITS ---
EXAMINATION: XR abdomen NG/feed tube insert EXAM DATE: 06/09/2021 23:55 INDICATION: OG placement . TECHNIQUE: Frontal projection(s) of the abdomen for interpretation. There is no prior study for dede lobo. FINDINGS: Feeding tube positioned over left upper quadrant, expected position. Cholecystectomy clips. Nonobstructive bowel gas pattern. Chest findings reported on dedicated exam at same time. IMPRESSION: Tube in position. Reviewed, dictated and finalized at location A. IMPRESSION: Tube in position.
--- NOTE | 2021-06-09 16:20 | PC.NURSE ---
Addendum entered by Liv Sandoval RN 06/09/21 21:05: Original Note: Jacqueline at [place] Poison control notified of pt taking 25-30 300mg Seroquel. Recommend monitoring EKG for changes, expect drowsiness and possible respiratory depression, medication information faxed to chart. Dr. Umana updated. Poison control states will call back to check on pt.
--- NOTE | 2021-06-09 16:27 | ECG_ITS ---
Measurements Intervals [place] Rate: 86 P: 42 [place]: 138 QRS: 22 QRSD: 102 T: 18 QT: 424 QTc: 509 Interpretive Statements SINUS RHYTHM INCOMPLETE RIGHT BUNDLE BRANCH BLOCK BORDERLINE T WAVE ABNORMALITY- ANTERIOR LEADS BORDERLINE ECG Electronically Signed On 06-09-2021 20:10:21 CDT by Chirag Almodovar D.O.
--- NOTE | 2021-06-09 16:31 | ED.OVERDOSE ---
HPI - Overdose General Chief Complaint: Overdose Stated Complaint: OD Time Seen by Provider: 06/09/21 16:27 History of Present Illness HPI Narrative: 25 yo female with h/o depression and prior suicide attempt presents tot ED after an overdose. She reportedly hadf a fight with her boyfriend and took 25-30 300 mg immediate release Seroquel tablets. This was an attempt to harm herself. History limited by mental status. Related Data Home Medications Medication Instructions Recorded Confirmed alprazolam 0.5 mg PO TID PRN 05/13/21 05/24/21 duloxetine 60 mg PO DAILY 05/13/21 05/23/21 trazodone 200 mg PO HS 05/13/21 05/24/21 olanzapine 15 mg PO HS 05/23/21 05/23/21 Allergies Allergy/AdvReac Type Severity Reaction Status Date / Time No Known Allergies Allergy Verified 01/16/21 13:57 Review of Systems Review of Systems: ROS unobtainable: Yes unobtainable due to mental status PMFSH Past Medical History Medical History Anxiety Depression Suicide attempt by drug overdose Surgical History Surgical History History of cholecystectomy Family History Family History Father Anxiety Bipolar 1 disorder, manic, moderate Schizoaffective disorder Hypertension Grandparent Anxiety Bipolar 1 disorder, manic, moderate Schizoaffective disorder Hypertension Uterus cancer Other Anxiety Bipolar 1 disorder, manic, moderate Mother History of blood clots Acute myocardial infarction Breast cancer Chronic obstructive pulmonary disease Hypertension Asthma Uterus cancer Social History Social History Smoking status: Never smoker Alcohol intake: unknown Substance use type: does not use Other substance usage details: URINE DRUG SCREEN POSITIVE, REFUSES TO ANSWER Gender identity (if verbalized by the patient): Female Spiritual care concerns: No Exam Const: General: healthy appearing and no acute distress Nutritional Appearance: well nourished Other: Sedated. Arousable to painful stimuli. Protecting airway HENMT: Head: normal to inspection Mouth: Yes moist mucous membranes Eyes: Pupils: Equal, round and reactive pupils present Neck: Neck: normal visual inspection Resp: Effort & Inspection: normal respiratory effort Auscultation: clear to auscultation bilaterally, no rales, no rhonchi and no wheezes Cardio: Jugular venous distension: no JVD Rate: regular rate Rhythm: regular rhythm Heart sounds: no murmurs GI: Inspection: non-distended GI Palp: Yes Soft to palpation and No Tenderness to palpation present (GI) Skin: General skin exam: normal color Neuro: General: moves all extremities Motor exam (neuro): 5/5 motor strength present throughout Other: Not participating in exam Extrem: General: normal to inspection and no edema Psych: Appearance: well kempt Course Vital Signs Vital signs: Vital Signs Temperature 36.6 C 06/09/21 16:15 Pulse Rate 100 06/09/21 16:15 Respiratory Rate 10 L 06/09/21 16:15 Blood Pressure 93/62 L 06/09/21 16:15 Pulse Oximetry 100 06/09/21 16:15 Temperature 36.8 C 06/09/21 16:17 Pulse Rate 97 06/09/21 19:15 Respiratory Rate 10 L 06/09/21 19:15 Blood Pressure 118/84 06/09/21 19:15 Pulse Oximetry 100 06/09/21 19:15 MDM - Overdose MDM Narrative Medical decision making narrative: She is already through peak toxicity without significant adverse events. She has moderate hypokalemia. Potassium replacement started. Differential Diagnosis Differential diagnosis: Likely drug overdose Medical Records Attestation: I reviewed the patient's medical records. Lab Data Attestation: I reviewed the patient's lab results. Result diagrams: 06/09/21 17:01 06/09/21 17:01 Labs: Lab Re
[2021-06-09] MEDS: SODIUM CHLORIDE 0.9% IV 1,000 ML 999 ML IV CONT (17:15)
[2021-06-09 17:37] LABS: Basophils Percent Auto 0.4 % (0.2-1.2); Eosinophils Absolute Auto 0.2 K/mm3 (0-0.3); Eosinophils Percent Auto 2.2 % (0-4.4); Hematocrit 32.1 % (37.0-47.0); Hemoglobin 10.5 g/dL (12.0-15.0); Immature Granulocyte Absolute 0.03 K/mm3 (0.00-0.031); Immature Granulocyte Percent A 0.4 % (0-0.5); Lymphocytes Absolute Auto 1.47 K/mm3 (0.9-3.2); Lymphocytes Percent Auto 21.4 % (18.3-44.2); Mean Corpuscular HGB Conc 32.7 g/dl (32-36); Mean Corpuscular Hemoglobin 30.3 pg (26-34); Mean Corpuscular Volume 92.8 fl (80-100); Mean Platelet Volume 9.7 fl (7.4-10.4); Monocytes Absolute Auto 0.5 K/mm3 (0.1-0.6); Monocytes Percent Auto 6.7 % (2.6-8.5); Neutrophils Absolute Auto 4.7 K/mm3 (1.3-6.7); Neutrophils Percent Auto 68.9 % (45.5-73.1); Platelet Count Result 285 k/mm3 (150-375); Red Blood Count 3.46 M/mm3 (4.2-5.4); Red Cell Distribution Width 12.2 % (11.5-14.5); White Blood Count 6.9 K/mm3 (4.5-10.0)
[2021-06-09 17:50] LABS: Prothrombin Time 13.5 Seconds (11.1-14.7)
[2021-06-09 17:51] LABS: Add Urine Microscopic? YES; Appearance Urine Clear (Clear); Bilirubin Urine Negative (Negative); Blood Urine Negative (Negative); Color Urine Yellow (Yellow); Glucose Urine UA Negative (Negative); Ketones Urine Negative (Negative); Leukocyte Esterase Ur Negative LEU/UL (Negative); Mucus Urine Heavy /lpf; Nitrate Urine Negative (Negative); Protein Urine 1+ mg/dL (Negative); Specific Grav Ur 1.023 (1.001-1.035); Squamous Epithelial Cell Urine Occasional /hpf (Few); Urobilinogen Urine Negative mg/dL (<2.0); WBC Urine 0-3 /hpf
[2021-06-09 17:51] LABS: Partial Thromboplastin Time 26.1 SECONDS (22.3-36.8)
[2021-06-09 17:57] LABS: Alanine Aminotransferase 13 U/L (4-35); Albumin Level 3.2 g/dL (3.5-5.1); Alkaline Phosphatase 62 U/L (38-126); Anion Gap 7 mmol/L (8-16); Aspartate Amino Transferase 18 U/L (14-36); Bilirubin,Total 0.5 mg/dL (0.2-1.3); Blood Urea Nitrogen 6 mg/dL (7-17); Calcium 8.2 mg/dL (8.4-10.2); Carbon Dioxide 27 mmol/L (22-30); Chloride 107 mmol/L (98-107); Estimated Glomerular Filt Rate > 60; Glucose 99 mg/dL (65-110); Potassium 2.6 mmol/L (3.4-5.0); Sodium 141 mmol/L (137-145)
[2021-06-09 18:11] LABS: Barbiturate Screen Urine Negative (Negative); Benzodiazepines Screen Urine Positive (Negative)
[2021-06-09 18:18] LABS: Cannabinoid Screen Urine Negative (Negative); Cocaine Screen Urine Negative (Negative); Methadone Screen Urine Negative (Negative); Opiate Screen Urine Negative (Negative); Phencyclidine Screen Urine Negative (Negative)
[2021-06-09 18:18] LABS: Acetaminophen < 10 ug/mL (10-30); Ethanol < 10 mg/dL (<10)
--- NOTE | 2021-06-09 18:21 | PC.NURSE ---
Increased somnolence since arrival to ED, VSSDr. Umana in to re-eval pt.
[2021-06-09 18:24] LABS: Thyroid Stimulating Hormone 0.509 uIU/mL (0.465-4.680)
[2021-06-09 19:08] LABS: Amphetamine Screen Urine Positive (Negative)
[2021-06-09 19:30] LABS: Salicylate < 1.0 mg/dL (2-20)
--- NOTE | 2021-06-09 19:49 | PC.NURSE ---
Poison control called in for update, given lab results, EKG and VS. No new recommendations at this time.
--- NOTE | 2021-06-09 23:00 | PC.NURSE ---
RR 8, Spo2 briefly at 90%, responds to sternal rub with increased SpO2 to 99%. Nasal trumpet inserted to right nare per Dr. Umana.
--- NOTE | 2021-06-09 23:15 | PC.NURSE ---
Report received from LUCILA Ribera. Assumed care of patient at this time.
--- NOTE | 2021-06-09 23:21 | PC.NURSE ---
2315 Patient started to seize, patient assisted with BVM ventilations. Patient did wake up after, and is now more drowsy. VORB give 2mg ativan per ERP . Patient given IVP at 2319. Patient VSS, 120bpm, 100% with BVM and 110/81 bp. ERP decision to intubate.
--- NOTE | 2021-06-09 23:25 | PC.NURSE ---
2325 VORB give 50 of Shawn for intubation. 2325 Respiratory in room, ERP in room prepare to intubate. 2325 Second IV placed in Right AC, 20g. 2326 50mg Shawn given for intubation. 2327 Nasal trumpet removed. 2329 114bpm, 100% O2 via BVM, 17 RR, 142/85. 2330 ERP intubated patient with size 7 ET tube, visually see past through cords, equal chest rise and fall, bilateral breath sounds and positive color change. 2333 25 at the lip, secured by Respiratory.
--- NOTE | 2021-06-09 23:40 | PC.NURSE ---
Addendum entered by Liv Sandoval RN 06/10/21 00:12: Removed per Dr. Umana Original Note: 3610 Patient's tongue ring removed prior to intubation.
[2021-06-09] MEDS: LORazepam INJ (*CRX) 2 MG/ML VIAL (23:42)
[2021-06-09] MEDS: RAPID SEQUENCE INTUBATION KIT 1 EACH (23:42)
[2021-06-09] MEDS: CRASH CART LOCKS 1 EACH XX (23:43)
--- NOTE | 2021-06-09 23:54 | ED.PROCEDURE ---
Procedures Intubation Intubation Date: 06/09/21 Sedative: none Paralytic: rocuronium Mg given: 50 Laryngoscope: Natalie (3) ET tube size: 7 Tube secured depth (cm): 25 Tube secured location: lips Tube placement confirmation: visualized tube passing through cords, equal breath sounds bilaterally, no breath sounds over epigastrium and confirmation by capnometry Patient tolerated procedure: well Intubation complications: none Additional comments: Could not pass 7.5 tube through cords
[2021-06-10] VITALS (34 sets, daily range): BP systolic 103–142; BP diastolic 70–103; PULSE 86–108; RESP 15–18; TEMP 36.2–37.7; O2SAT 95–100; BMI 26.6; BMI 27.1
[2021-06-10 00:07] LABS: Magnesium 1.9 mg/dL (1.6-2.3)
[2021-06-10] MEDS: FENTANYL 2,500MCG/NS250ML(*CRX 2,500 MCG/250 ML BAG IV CONT ×2 (00:12→21:27)
--- NOTE | 2021-06-10 00:12 | PC.NURSE ---
0007 RT pulled back ET tube to 23 per [facility] ERP.
[2021-06-10] MEDS: MIDAZOLAM 100MG/NS 100ML(*CRX) 100 MG/100 ML BAG IV CONT ×2 (00:15→21:28)
[2021-06-10] MEDS: SODIUM CHLORIDE 0.9% IV 1,000 ML 999 ML IV CONT (00:21)
--- NOTE | 2021-06-10 01:34 | PM.IMHP ---
H&P: HPI History of Present Illness Date/Time: 06/10/21 01:34 Chief Complaint: Overdose Narrative: This is a 25-year-old female with past medical history significant for depression, anxiety, multiple suicide attempts by drug overdose. Patient had prior admission to the hospital in 1 occasion with Zyprexa overdose on another occasion trazodone overdose this time around patient comes with overdose on Seroquel roughly 25-30 tablets of 300 mg. Upon arrival to the emergency room patient had a depressed mentation and her respiratory rate increasingly got more spaced out, she then had a seizure for which he received 2 mg of Ativan. Poison Control was called patient was unable to give any history at the time of my visit as she was postictal and had received 2 mg of Ativan after having seizure episode subsequently patient was intubated for airway protection. Patient is currently on ventilator support. Review of Systems Review of Systems: ROS unobtainable: Yes unobtainable due to mental status (Sedated on ventilator support ET tube in place) PMFSH Past Medical History Medical History Anxiety Depression Suicide attempt by drug overdose Surgical History Surgical History History of cholecystectomy Family History Family History Father Anxiety Bipolar 1 disorder, manic, moderate Schizoaffective disorder Hypertension Grandparent Anxiety Bipolar 1 disorder, manic, moderate Schizoaffective disorder Hypertension Uterus cancer Other Anxiety Bipolar 1 disorder, manic, moderate Mother History of blood clots Acute myocardial infarction Breast cancer Chronic obstructive pulmonary disease Hypertension Asthma Uterus cancer Social History Social History Smoking status: Never smoker Alcohol intake: unknown Substance use type: does not use Other substance usage details: URINE DRUG SCREEN POSITIVE, REFUSES TO ANSWER Gender identity (if verbalized by the patient): Female Spiritual care concerns: No Meds Home Medications and Allergies Home Medications Medication Instructions Recorded Confirmed Type alprazolam 0.5 mg PO TID PRN 05/13/21 05/24/21 History duloxetine 60 mg PO DAILY 05/13/21 05/23/21 History trazodone 200 mg PO HS 05/13/21 05/24/21 History olanzapine 15 mg PO HS 05/23/21 05/23/21 History Allergies Allergy/AdvReac Type Severity Reaction Status Date / Time No Known Allergies Allergy Verified 01/16/21 13:57 Vital Signs Vital Signs - 24 hr 06/09/21 16:15 06/09/21 16:17 06/09/21 16:31 Temperature 97.8 F 98.3 F Pulse Rate 100 88 91 Respiratory Rate 12 13 18 Blood Pressure 93/62 L 92/56 L 77/51 L Pulse Oximetry 100 97 99 06/09/21 16:36 06/09/21 16:46 06/09/21 17:13 Temperature Pulse Rate 92 89 93 Respiratory Rate 11 L 18 17 Blood Pressure 101/68 93/62 L 100/70 Pulse Oximetry 98 98 100 06/09/21 17:15 06/09/21 17:30 06/09/21 18:00 Temperature Pulse Rate 93 100 105 H Respiratory Rate 10 L 10 L 9 L Blood Pressure 101/67 112/73 123/76 Pulse Oximetry 99 100 100 06/09/21 18:15 06/09/21 18:45 06/09/21 19:15 Temperature Pulse Rate 106 H 100 97 Respiratory Rate 10 L 10 L 10 L Blood Pressure 127/81 118/86 118/84 Pulse Oximetry 100 100 100 06/09/21 20:00 06/09/21 20:15 06/09/21 20:30 Temperature Pulse Rate 96 97 93 Respiratory Rate 10 L 10 L 9 L Blood Pressure 115/87 117/90 114/84 Pulse Oximetry 100 100 100 06/09/21 20:45 06/09/21 21:00 06/09/21 21:15 Temperature Pulse Rate 92 90 90 Respiratory Rate 10 L 10 L 10 L Blood Pressure 112/84 116/84 115/87 Pulse Oximetry 100 100 100 06/09/21 22:30 06/09/21 22:45 06/09/21 23:00 Temperature Pulse Rate 89 89 89 Respiratory Rate 9 L 10 L 15 Blood Pressure 123/89 P
[2021-06-10] MEDS: SODIUM CHLORIDE 0.9% IV 1,000 ML 125 ML IV CONT ×3 (01:58→21:26)
[2021-06-10 06:17] LABS: Alveolar/Arterial O2 Gradient 106.3 mmHg; Base Excess ABG -1.3 mEq/l (+/-2.0); Carboxyhemoglobin 0.2 % THb (0-2.0); Fractional Inspired Oxygen 40 %; Methemoglobin ABG 0.3 %THb (0-1.5); Oxygen Content ABG 15.4 %vol (16.0-22.0); Oxygen Saturation ABG 98.9 % (95.0-100.0); Oxyhemoglobin 97.6 % THb (90.0-100.0); PCO2 ABG 32.2 mmHg (35.0-45.0); PO2 ABG 141.9 mmHg (80.0-100.0); PO2 FiO2 Ratio Arterial Blood 3.55 %; Reduced Hemoglobin 1.9 %THb (0-5.0); pH ABG 7.453 (7.350-7.450)
[2021-06-10 06:18] LABS: Device VENTILATOR; Modified Allen's Test Pass; Site Drawn RIGHT RADIAL
[2021-06-10 06:19] LABS: Arterial Blood Gas PEEP 5 cmH2O; Arterial Blood Gas Tidal Volume 350 ml; Arterial Blood Gas Vent Mode CMV; Arterial Blood Gas Ventilator rate 15 /MIN
--- NOTE | 2021-06-10 07:32 | ECG_ITS ---
Measurements Intervals [place] Rate: 94 P: 49 LA: 139 QRS: 47 QRSD: 88 T: 20 QT: 295 QTc: 369 Interpretive Statements SINUS RHYTHM INCOMPLETE RIGHT BUNDLE BRANCH BLOCK BORDERLINE T WAVE ABNORMALITY- ANT/INF LEADS BORDERLINE ECG Electronically Signed On 06-10-2021 11:40:31 CDT by Chirag Almodovar D.O.
[2021-06-10 08:34] LABS: Anion Gap 10 mmol/L (8-16); Blood Urea Nitrogen 2 mg/dL (7-17); Calcium 8.2 mg/dL (8.4-10.2); Carbon Dioxide 21 mmol/L (22-30); Chloride 104 mmol/L (98-107); Estimated CRCL calculation 154 ml/min; Estimated Glomerular Filt Rate > 60; Glucose 98 mg/dL (65-110); Magnesium 2.2 mg/dL (1.6-2.3); Potassium 3.1 mmol/L (3.4-5.0); Sodium 135 mmol/L (137-145)
--- NOTE | 2021-06-10 09:46 | WPDCNINT ---
Assessment and Plan Assessment and plan (1) Acute respiratory failure: Code(s): J96.00 - Acute respiratory failure, unspecified whether with hypoxia or hypercapnia Status: Acute Assessment and Plan: Acute Respiratory failure secondary to toxic encephalopathy and seizure Continue full mechanical ventilation support to prevent hypoxemia/hypercarbia and end organ damage. ABG and PCXR reviewed I will repeat chest x-ray now to a certain position of ET tube Low tidal volume ventilation strategy to prevent volutrauma Will attempt SBT when mental status improves (2) Seizure: Code(s): R56.9 - Unspecified convulsions Status: Acute Assessment and Plan: Currently sedated with versed EEG (3) Encephalopathy acute: Code(s): G93.40 - Encephalopathy, unspecified Status: Acute Assessment and Plan: Toxic encephalopathy secondary to drug overdose Check EEG Currently sedated for mechanical ventilation (4) Suicide attempt by drug overdose: Code(s): T50.902A - Poisoning by unspecified drugs, medicaments and biological substances, intentional self-harm, initial encounter Status: Acute Assessment and Plan: Patient took Seroquel tablets Currently afebrile and vital signs stable Supportive treatment with sedation and mechanical ventilation IV fluids I repeat EKG this morning and shows normal QTC and QRS intervals (5) Depression with anxiety: Code(s): F41.8 - Other specified anxiety disorders Status: Acute Assessment and Plan: Patient will again be evaluated by Psychiatry post extubation (6) Electrolyte abnormality: Code(s): E87.8 - Other disorders of electrolyte and fluid balance, not elsewhere classified Status: Acute Assessment and Plan: Will replace low potassium Additional Plan DVT prophylaxis -start Lovenox Stress ulcer prophylaxis -start Pepcid Nutrition -start Tube Feeds Code Status - Full Code Total Critical Care Time - 35 minutes Due to a high probability of clinically significant, life threatening deterioration, the patient required my highest level of preparedness to intervene emergently and I personally spent this critical care time directly and personally managing the patient. This critical care time included obtaining a history; examining the patient; pulse oximetry; ordering and review of studies; arranging urgent treatment with development of a management plan; evaluation of patient's response to treatment; frequent reassessment; and discussions with other providers. It was exclusive of separately billable procedures and treating other patients and teaching time. Please see Assessment and Plan section and the rest of the note for further information on patient assessment and treatment [facility] Consult Note Consult date: 06/10/21 Time Seen: 07:00 HPI: Guerline Claudio oIna Rodrigez is a 25 year old female with past medical history significant for depression, anxiety and multiple suicide attempts in recent past by drug overdose presented again to ER with chief complaint of taking 25-30 pills of Seroquel 300 mg. Patient has had 2 recent admission with suicide attempt with drug overdose 05/13/2021 patient ingested 15 pills of trazodone and was discharged to inpatient psychiatry 05/23/2021 overdosed on 15 pills of Zyprexa 10 mg and was again discharged to inpatient psychiatry Initially Upon arrival to the emergency room patient was awake and alert but later had a depressed mentation and an episode of seizure. Patient was intubated in ED and sedated. She was admitted to ICU for further evaluation management. History obtained from chart. Pt intubated and sedated and unable to provide any other history. Review of Systems Review of Systems: ROS unobtainable: Yes unobtainable due to endotracheal tube, unobtainable due to medical condition and unobtainable due to mental status PMFSH Past Medical History Medical History (Reviewe
[2021-06-10] MEDS: ENOXAPARIN 40 MG/0.4 ML SYRINGE SUB-Q (09:53)
[2021-06-10] MEDS: FAMOTIDINE 20 MG TABLET FEED TUBE ×2 (09:53→21:26)
[2021-06-10] MEDS: POTASSIUM CHLORIDE 20 MEQ PACKET (FOR LIQUID) 40 MEQ FEED TUBE ×3 (11:30→18:07)
--- NOTE | 2021-06-10 12:39 | PM.IMPN ---
Progress Note: A&P Assessment and Plan (1) Acute respiratory failure: Qualifiers: Respiratory failure complication: hypoxia Qualified Code(s): J96.01 - Acute respiratory failure with hypoxia Code(s): J96.00 - Acute respiratory failure, unspecified whether with hypoxia or hypercapnia Status: Acute Assessment and Plan: Acute Respiratory failure secondary to toxic encephalopathy and seizure Continue full mechanical ventilation support to prevent hypoxemia/hypercarbia and end organ damage. ABG and PCXR reviewed I will repeat chest x-ray now to a certain position of ET tube Low tidal volume ventilation strategy to prevent volutrauma Will attempt SBT when mental status improves (2) Seizure: Code(s): R56.9 - Unspecified convulsions Status: Acute Assessment and Plan: Currently sedated Possibly due to quetiapine overdose EEG pending (3) Encephalopathy acute: Code(s): G93.40 - Encephalopathy, unspecified Status: Acute Assessment and Plan: Toxic encephalopathy secondary to drug overdose Currently sedated for mechanical ventilation (4) Suicide attempt by drug overdose: Code(s): T50.902A - Poisoning by unspecified drugs, medicaments and biological substances, intentional self-harm, initial encounter Status: Acute Assessment and Plan: Supportive treatment with sedation and mechanical ventilation IV fluids F/u EKG (QT WNL) and Tele (5) Depression with anxiety: Code(s): F41.8 - Other specified anxiety disorders Status: Acute Assessment and Plan: Patient will again be evaluated by Psychiatry post extubation (6) Electrolyte abnormality: Code(s): E87.8 - Other disorders of electrolyte and fluid balance, not elsewhere classified Status: Acute Assessment and Plan: Potassium replacement Subjective Date/time seen: 06/10/21 12:39 Interval history: Admitted 06/09 with recurrent drug overdose with quetiapine 300mg 25-30 tabs. 06/10 visit. Sedated and intubated. Review of Systems Review of Systems: ROS unobtainable: Yes unobtainable due to medical condition Exam Narrative: Head normocephalic. Sclerae nonicteric. Pupils midpoint and sluggish. Pharyngeal mucosa pink and intact. External ears and nares unremarkable. Neck without JVD. Chest clear to auscultation. Heart normal S1-S2 regular rate. No audible murmur. Extremities no edema cyanosis or clubbing. Abdomen bowel sounds hypoactive soft no mass or tenderness noted. Musculoskeletal without obvious deformity. Neurologic cranial nerves symmetric to inspection. Psychiatric sedated. Objective Data Vital Signs Vital Signs: Vital Signs - 24 hr 06/09/21 16:15 06/09/21 16:17 06/09/21 16:31 Temperature 97.8 F 98.3 F Pulse Rate 100 88 91 Respiratory Rate 12 13 18 Blood Pressure 93/62 L 92/56 L 77/51 L Pulse Oximetry 100 97 99 06/09/21 16:36 06/09/21 16:46 06/09/21 17:13 Temperature Pulse Rate 92 89 93 Respiratory Rate 11 L 18 17 Blood Pressure 101/68 93/62 L 100/70 Pulse Oximetry 98 98 100 06/09/21 17:15 06/09/21 17:30 06/09/21 18:00 Temperature Pulse Rate 93 100 105 H Respiratory Rate 10 L 10 L 9 L Blood Pressure 101/67 112/73 123/76 Pulse Oximetry 99 100 100 06/09/21 18:15 06/09/21 18:45 06/09/21 19:15 Temperature Pulse Rate 106 H 100 97 Respiratory Rate 10 L 10 L 10 L Blood Pressure 127/81 118/86 118/84 Pulse Oximetry 100 100 100 06/09/21 20:00 06/09/21 20:15 06/09/21 20:30 Temperature Pulse Rate 96 97 93 Respiratory Rate 10 L 10 L 9 L Blood Pressure 115/87 117/90 114/84 Pulse Oximetry 100 100 100 06/09/21 20:45 06/09/21 21:00 06/09/21 21:15 Temperature Pulse Rate 92 90 90 Respiratory Rate 10 L 10 L 10 L Blood Pressure 112/84 116/84 115/87 Pulse Oximetry 100 100 100 06/09/21 22:30 06/09/21 22:45 06/09/21 23:00 Temperature Pulse Rate 89 89 89 Respiratory Rate 9 L 10 L 15 Blood Pres
[2021-06-11] VITALS (19 sets, daily range): BP systolic 96–125; BP diastolic 58–82; PULSE 92–116; RESP 15–23; TEMP 36.3–37.4; O2SAT 94–100
[2021-06-11 05:20] LABS: Hemoglobin 11.7 g/dL (12.0-15.0); Mean Corpuscular HGB Conc 32.5 g/dl (32-36); Mean Corpuscular Hemoglobin 29.6 pg (26-34); Mean Corpuscular Volume 91.1 fl (80-100); Mean Platelet Volume 9.5 fl (7.4-10.4); Platelet Count Result 273 k/mm3 (150-375); Red Blood Count 3.95 M/mm3 (4.2-5.4); Red Cell Distribution Width 12.2 % (11.5-14.5); White Blood Count 11.1 K/mm3 (4.5-10.0)
[2021-06-11 05:22] LABS: Alveolar/Arterial O2 Gradient 126.1 mmHg; Base Excess ABG 0.5 mEq/l (+/-2.0); Carboxyhemoglobin 0.3 % THb (0-2.0); Device VENTILATOR; Fractional Inspired Oxygen 40 %; HCO3 ABG 24.5 mEq/l (22.0-26.0); Methemoglobin ABG 0.5 %THb (0-1.5); Modified Allen's Test Pass; Oxygen Content ABG 16.9 %vol (16.0-22.0); Oxygen Saturation ABG 98.4 % (95.0-100.0); Oxyhemoglobin 96.9 % THb (90.0-100.0); PCO2 ABG 37.1 mmHg (35.0-45.0); PO2 ABG 116.4 mmHg (80.0-100.0); PO2 FiO2 Ratio Arterial Blood 2.91 %; Reduced Hemoglobin 2.3 %THb (0-5.0); Site Drawn RIGHT RADIAL; Total Hemoglobin 12.3 g/dL (12.0-18.0); pH ABG 7.437 (7.350-7.450)
[2021-06-11 05:23] LABS: Arterial Blood Gas PEEP 5 cmH2O; Arterial Blood Gas Tidal Volume 350 ml; Arterial Blood Gas Vent Mode CMV; Arterial Blood Gas Ventilator rate 15 /MIN
[2021-06-11 05:32] LABS: Alanine Aminotransferase 11 U/L (4-35); Albumin Level 3.1 g/dL (3.5-5.1); Alkaline Phosphatase 79 U/L (38-126); Anion Gap 4 mmol/L (8-16); Aspartate Amino Transferase 15 U/L (14-36); Bilirubin,Total 0.5 mg/dL (0.2-1.3); Blood Urea Nitrogen 3 mg/dL (7-17); Calcium 8.1 mg/dL (8.4-10.2); Carbon Dioxide 24 mmol/L (22-30); Chloride 104 mmol/L (98-107); Estimated CRCL calculation 127 ml/min; Estimated Glomerular Filt Rate > 60; Glucose 107 mg/dL (65-110); Magnesium 1.8 mg/dL (1.6-2.3); Potassium 3.8 mmol/L (3.4-5.0); Sodium 132 mmol/L (137-145)
[2021-06-11 09:22] LABS: Base Excess ABG 1.9 mEq/l (+/-2.0); Device VENTILATOR; Fractional Inspired Oxygen 40 %; HCO3 ABG 26.3 mEq/l (22.0-26.0); Modified Allen's Test Pass; Oxygen Content ABG 16.9 %vol (16.0-22.0); Oxygen Saturation ABG 97.2 % (95.0-100.0); Oxyhemoglobin 95.8 % THb (90.0-100.0); PCO2 ABG 40.5 mmHg (35.0-45.0); PO2 ABG 91.6 mmHg (80.0-100.0); PO2 FiO2 Ratio Arterial Blood 2.29 %; Site Drawn RIGHT RADIAL; Total Hemoglobin 12.5 g/dL (12.0-18.0)
[2021-06-11 09:23] LABS: Arterial Blood Gas PEEP 5 cmH2O; Arterial Blood Gas Pressure Support 5 cmH2O; Arterial Blood Gas Vent Mode SPONTANEOUS
[2021-06-11] MEDS: FAMOTIDINE 20 MG TABLET FEED TUBE (09:42)
--- NOTE | 2021-06-11 09:47 | WPDINTPN ---
Progress Note: A&P Assessment and Plan (1) Acute respiratory failure: Qualifiers: Respiratory failure complication: hypoxia Qualified Code(s): J96.01 - Acute respiratory failure with hypoxia Code(s): J96.00 - Acute respiratory failure, unspecified whether with hypoxia or hypercapnia Status: Acute Assessment and Plan: Acute Respiratory failure secondary to toxic encephalopathy and seizure ABG and PCXR reviewed 5/5 PSV SBT done for more than 1/2 hour. RSBI, ABGI and Vitals acceptable. Pt awake and following commands. Will extubate and monitor. (2) Seizure: Code(s): R56.9 - Unspecified convulsions Status: Acute Assessment and Plan: Monitor for any seizure activity EEG ordered (3) Encephalopathy acute: Code(s): G93.40 - Encephalopathy, unspecified Status: Acute Assessment and Plan: Toxic encephalopathy secondary to drug overdose Check EEG Improved as patient now following commands (4) Suicide attempt by drug overdose: Code(s): T50.902A - Poisoning by unspecified drugs, medicaments and biological substances, intentional self-harm, initial encounter Status: Acute Assessment and Plan: Patient took Seroquel tablets Supportive treatment with sedation and mechanical ventilation IV fluids Last EKG showed normal QTC and QRS intervals (5) Depression with anxiety: Code(s): F41.8 - Other specified anxiety disorders Status: Acute Assessment and Plan: Patient will again be evaluated by Psychiatry post extubation (6) Electrolyte abnormality: Code(s): E87.8 - Other disorders of electrolyte and fluid balance, not elsewhere classified Status: Acute Assessment and Plan: Improved after potassium replacement (7) Aspiration pneumonia: Code(s): J69.0 - Pneumonitis due to inhalation of food and vomit Status: Acute Assessment and Plan: Patient had some infiltrates on her chest x-ray yesterday. Overnight she became afebrile, her WBC increased and thick secretions from ET tube Will start empiric Zosyn Check cultures Additional Plan DVT prophylaxis -start Lovenox Stress ulcer prophylaxis -start Pepcid Nutrition -Tube Feeds are on hold Code Status - Full Code Total Critical Care Time - 30 minutes Due to a high probability of clinically significant, life threatening deterioration, the patient required my highest level of preparedness to intervene emergently and I personally spent this critical care time directly and personally managing the patient. This critical care time included obtaining a history; examining the patient; pulse oximetry; ordering and review of studies; arranging urgent treatment with development of a management plan; evaluation of patient's response to treatment; frequent reassessment; and discussions with other providers. It was exclusive of separately billable procedures and treating other patients and teaching time. Please see Assessment and Plan section and the rest of the note for further information on patient assessment and treatment Subjective Date/time seen: 06/11/21 Overnight events reviewed. Febrile Thick secretions from ET tube Continues to be on mechanical ventilation Sedated Vitals acceptable Interval history: Admitted 06/09 with recurrent drug overdose with quetiapine 300mg 25-30 tabs. Review of Systems Review of Systems: ROS unobtainable: Yes unobtainable due to endotracheal tube, unobtainable due to medical condition and unobtainable due to mental status Exam Narrative: General: Pt is sedated, intubated and on mechanical ventilation Lungs/Chest: Trachea central Coarse BS B/L, No crackles or wheezing. Cardiac: RRR. Normal S1 S2. No murmurs Circulation: Pedal pulses are intact and symmetrical. Abdomen: Decreased bowel sounds. Soft. NT. ND. Extremities: No clubbing, cyanosis or edema. Warm : Garay in place Neurologic: Unable to fully assess due to
--- NOTE | 2021-06-11 12:33 | PCDIET ---
Nutrition Follow-Up Complete: Nutrition Diagnosis: Inadequate oral intake related to oral intubation as evidenced by need for tube feedings. Nutrition Goal: Patient to meet estimated nutritional needs. Goal in progress. Patient previously tolerating tube feedings which were held earlier for extubation. Patient now on nasal cannula. Recommend advancing diet as tolerated, once medically appropriate. Last recorded weight is 67.2 kg which is stable. Bowel Motility: No documented BM as of yet. Labs Reviewed: WBC (11.1), RBC (3.95), Hgb (11.7), Hct (36.0), BUN (3), Cr (0.5), Na (132), Alb (3.1), Wing Ca (8.82) Meds Noted: Pepcid, Fentanyl, Versed, Zosyn Additional Notes: No documented skin breakdown. Will continue to monitor with same goal. Nutrition Monitoring and Evaluation: Follow up every 3 days. Follow daily in ICU rounds.
[2021-06-11] MEDS: SODIUM CHLORIDE 0.9% IV 1,000 ML 125 ML IV CONT (12:53)
--- NOTE | 2021-06-11 13:29 | PM.IMPN ---
Progress Note: A&P Assessment and Plan (1) Aspiration pneumonia: Qualifiers: Aspiration pneumonia type: unspecified Laterality: unspecified laterality Lung location: unspecified part of lung Qualified Code(s): J69.0 - Pneumonitis due to inhalation of food and vomit Code(s): J69.0 - Pneumonitis due to inhalation of food and vomit Status: Acute Assessment and Plan: CXR ABNL Continue Zosyn (2) Acute respiratory failure: Qualifiers: Respiratory failure complication: hypoxia Qualified Code(s): J96.01 - Acute respiratory failure with hypoxia Code(s): J96.00 - Acute respiratory failure, unspecified whether with hypoxia or hypercapnia Status: Acute Assessment and Plan: RESOLVED (3) Seizure: Code(s): R56.9 - Unspecified convulsions Status: Acute Assessment and Plan: Monitor for any seizure activity EEG ordered (4) Encephalopathy acute: Code(s): G93.40 - Encephalopathy, unspecified Status: Acute Assessment and Plan: Toxic encephalopathy secondary to drug overdose Check EEG Resolving (5) Suicide attempt by drug overdose: Code(s): T50.902A - Poisoning by unspecified drugs, medicaments and biological substances, intentional self-harm, initial encounter Status: Acute Assessment and Plan: Patient took Seroquel tablets Last EKG showed normal QTC and QRS intervals Crisis evaluation (6) Depression with anxiety: Code(s): F41.8 - Other specified anxiety disorders Status: Acute Assessment and Plan: Patient will again be evaluated by Psychiatry post extubation (7) Electrolyte abnormality: Code(s): E87.8 - Other disorders of electrolyte and fluid balance, not elsewhere classified Status: Acute Assessment and Plan: Improved after potassium replacement Subjective Date/time seen: 06/11/21 13:29 Interval history: Admitted 06/09 with recurrent drug overdose with quetiapine 300mg 25-30 tabs. 06/11: Extubated. Sleeping. Withdrawn. Review of Systems Review of Systems: ROS unobtainable: Yes unobtainable due to mental status Exam Narrative: General: Resting comforably Lungs/Chest: NL effort. Coarse BS. No crackles or wheezing. Cardiac: RRR. Normal S1 S2. No murmurs Circulation: Pedal pulses are intact and symmetrical. Abdomen: Decreased bowel sounds. Soft. NT. ND. Extremities: No clubbing, cyanosis or edema. Warm Neurologic: CN symmetric to inspection Psych: withdrawn Objective Data Vital Signs Vital Signs: Vital Signs - 24 hr 06/10/21 13:58 06/10/21 14:00 06/10/21 16:00 Temperature 100 F H Pulse Rate 100 99 103 H Respiratory Rate 16 16 Blood Pressure 122/88 119/84 Pulse Oximetry 100 100 100 06/10/21 16:39 06/10/21 18:00 06/10/21 19:44 Temperature 99.5 F Pulse Rate 103 H 103 H 100 Respiratory Rate 18 Blood Pressure 125/86 Pulse Oximetry 100 99 06/10/21 19:45 06/10/21 20:00 06/10/21 21:27 Temperature 98.2 F Pulse Rate 99 100 99 Respiratory Rate 18 18 Blood Pressure 124/80 Pulse Oximetry 100 100 06/10/21 21:28 06/10/21 22:00 06/10/21 23:11 Temperature 98 F Pulse Rate 99 101 H 101 H Respiratory Rate 16 16 Blood Pressure 122/84 Pulse Oximetry 100 100 06/10/21 23:42 06/10/21 23:44 06/10/21 23:45 Temperature 97.3 F L Pulse Rate 108 H 100 100 Respiratory Rate 15 15 Blood Pressure 117/76 Pulse Oximetry 95 100 06/11/21 02:00 06/11/21 02:54 06/11/21 04:00 Temperature 97.5 F L Pulse Rate 104 H 102 H 105 H Respiratory Rate 18 15 Blood Pressure 113/58 L 114/65 Pulse Oximetry 99 100 100 06/11/21 05:24 06/11/21 06:00 06/11/21 07:48 Temperature 99.3 F Pulse Rate 104 H 105 H 102 H Respiratory Rate 15 Blood Pressure 115/76 Pulse Oximetry 100 100 100 06/11/21 08:00 06/11/21 10:00 06/11/21 10:51 Temperature 97.9 F 97.8 F Pulse Rate 104 H 116 H 107 H Respiratory Rate 21 H 23 H B
[2021-06-12] VITALS: BP 109/60; PULSE 90; PULSE 94; RESP 18; TEMP 37.1; O2SAT 92
[2021-06-12 02:00] VITALS: BP 103/61; PULSE 95; RESP 21; O2SAT 94
[2021-06-12 04:00] VITALS: BP 104/64; PULSE 94; PULSE 96; RESP 23; TEMP 36.7; O2SAT 93; O2SAT 94
[2021-06-12 04:43] LABS: Hematocrit 34.9 % (37.0-47.0); Hemoglobin 11.3 g/dL (12.0-15.0); Mean Corpuscular HGB Conc 32.4 g/dl (32-36); Mean Corpuscular Hemoglobin 29.7 pg (26-34); Mean Corpuscular Volume 91.8 fl (80-100); Mean Platelet Volume 9.2 fl (7.4-10.4); Platelet Count Result 286 k/mm3 (150-375); Red Cell Distribution Width 12.2 % (11.5-14.5); White Blood Count 11.1 K/mm3 (4.5-10.0)
[2021-06-12 04:59] LABS: Alanine Aminotransferase 15 U/L (4-35); Albumin Level 3.4 g/dL (3.5-5.1); Alkaline Phosphatase 84 U/L (38-126); Anion Gap 6 mmol/L (8-16); Aspartate Amino Transferase 18 U/L (14-36); Bilirubin,Total 0.6 mg/dL (0.2-1.3); Blood Urea Nitrogen 5 mg/dL (7-17); Calcium 8.7 mg/dL (8.4-10.2); Carbon Dioxide 29 mmol/L (22-30); Chloride 100 mmol/L (98-107); Estimated CRCL calculation 108 ml/min; Estimated Glomerular Filt Rate > 60; Glucose 134 mg/dL (65-110); Potassium 3.7 mmol/L (3.4-5.0); Sodium 135 mmol/L (137-145)
[2021-06-12 06:00] VITALS: BP 111/71; PULSE 92; RESP 15; O2SAT 96
[2021-06-12 08:00] VITALS: BP 101/71; PULSE 86; RESP 21; TEMP 36.8; O2SAT 94
[2021-06-12] MEDS: AMOXICILLIN/CLAVULANATE K 875-125 MG TAB 1 TABLET PO (08:12)
--- NOTE | 2021-06-12 08:55 | WPDINTPN ---
Progress Note: A&P Assessment and Plan (1) Acute respiratory failure: Qualifiers: Respiratory failure complication: hypoxia Qualified Code(s): J96.01 - Acute respiratory failure with hypoxia Code(s): J96.00 - Acute respiratory failure, unspecified whether with hypoxia or hypercapnia Status: Acute Assessment and Plan: Acute Respiratory failure secondary to toxic encephalopathy and seizure Patient was extubated yesterday after a successful weaning trial On room air now In incentive spirometry and up in chair today (2) Seizure: Code(s): R56.9 - Unspecified convulsions Status: Acute Assessment and Plan: No seizure activity since arrival to ICU Monitor (3) Encephalopathy acute: Code(s): G93.40 - Encephalopathy, unspecified Status: Acute Assessment and Plan: Toxic encephalopathy secondary to drug overdose Resolved as patient is alert oriented x3 in a (4) Suicide attempt by drug overdose: Code(s): T50.902A - Poisoning by unspecified drugs, medicaments and biological substances, intentional self-harm, initial encounter Status: Acute Assessment and Plan: Patient took Seroquel tablets Supportive treatment with sedation and mechanical ventilation Off mechanical ventilation and alert oriented x3 now Last EKG showed normal QTC and QRS intervals (5) Depression with anxiety: Code(s): F41.8 - Other specified anxiety disorders Status: Acute Assessment and Plan: Patient will again be evaluated by Psychiatry today (6) Electrolyte abnormality: Code(s): E87.8 - Other disorders of electrolyte and fluid balance, not elsewhere classified Status: Acute Assessment and Plan: Improved after potassium replacement (7) Aspiration pneumonia: Qualifiers: Aspiration pneumonia type: unspecified Laterality: unspecified laterality Lung location: unspecified part of lung Qualified Code(s): J69.0 - Pneumonitis due to inhalation of food and vomit Code(s): J69.0 - Pneumonitis due to inhalation of food and vomit Status: Acute Assessment and Plan: Patient had some infiltrates on her chest x-ray post intubation. Overnight she became afebrile, her WBC increased and thick secretions from ET tube Patient was started on empiric Zosyn She is now afebrile and on room air. She does have some cough Pending cultures Will switch Zosyn to p.o. Augmentin Additional Plan DVT prophylaxis -SCDs Advance regular diet Code Status - Full Code VALENCIA Garay Transfer out of ICU today Subjective Date/time seen: 06/12/21 08:55 Patient was extubated yesterday after a successful weaning trial. He is on room air. Complaining of sore throat and hoarse voice. She is also complaining of cough which is mostly dry. Denies any other complaints. All other systems were reviewed and were negative Review of Systems Review of Systems: All systems reviewed & are unremarkable except as noted in HPI and below (Subjective) Exam Narrative: General: Pt is alert awake and in NAD Lungs/Chest: Trachea central Clear BS B/L, No crackles or wheezing. Cardiac: RRR. Normal S1 S2. No murmurs Circulation: Pedal pulses are intact and symmetrical. Abdomen: Normal bowel sounds.. Soft. NT. ND. Extremities: No clubbing, cyanosis or edema. Warm : Garay in place Neurologic: Follows commands. Moves all 4 extremities PERRL Skin: No Rash Objective Data Vital Signs Vital Signs: Vital Signs - 24 hr 06/11/21 10:00 06/11/21 10:51 06/11/21 11:08 Temperature 36.6 C Pulse Rate 116 H 107 H 101 H Respiratory Rate 23 H 18 Blood Pressure 125/80 Pulse Oximetry 97 98 100 06/11/21 11:15 06/11/21 12:00 06/11/21 12:17 Temperature 36.4 C Pulse Rate 94 Respiratory Rate 16 Blood Pressure 115/72 Pulse Oximetry 100 100 100 06/11/21 14:00 06/11/21 16:00 06/11/21 18:00 Temperature 36.7 C 36.3 C L Pulse Rate 92 92 99 Respirato
[2021-06-12 10:08] LABS: EDCOVIDSCREEN Negative (Negative)
[2021-06-12 10:38] VITALS: O2SAT 95
--- NOTE | 2021-06-12 11:38 | PCDIET ---
Nutrition Follow-Up Complete: Nutrition Diagnosis: Inadequate oral intake related to oral intubation as evidenced by need for tube feedings. Nutrition Goal: Patient to meet estimated nutritional needs. Goal in progress. Diet advanced to regular with intakes from 25-100% so far. Last recorded weight is 65.4 kg which is down from last review. -I/O. Bowel Motility: No documented BM. Labs Reviewed: WBC (11.1), RBC (3.80), Hgb (11.3), Hct (34.9), Glu (134), BUN (5), Cr (0.6), Na (135), Alb (3.4) Meds Noted: Augmentin Additional Notes: No documented skin breakdown. Will continue to monitor with same goal. Nutrition Monitoring and Evaluation: Follow up in 5 days.
--- NOTE | 2021-06-12 12:41 | PM.DS ---
DS: Admitting Diagnosis Admitting Diagnosis (1) Acute respiratory failure: Code(s): J96.00 - Acute respiratory failure, unspecified whether with hypoxia or hypercapnia Status: Acute Assessment and Plan: Patient is currently on ventilator support Intubated for airway protection after patient had seizure episode and overdose on Seroquel Pulmonary toilet Supportive care Ventilator management as per Critical Care (2) Suicide attempt by drug overdose: Code(s): T50.902A - Poisoning by unspecified drugs, medicaments and biological substances, intentional self-harm, initial encounter Status: Acute Assessment and Plan: Patient with several attempts in the past Will require evaluation pending medical clearance (3) Altered mental status: Code(s): R41.82 - Altered mental status, unspecified Status: Acute Assessment and Plan: Secondary to drug overdose Currently sedated on ventilator support (4) Seizure: Code(s): R56.9 - Unspecified convulsions Status: Acute Assessment and Plan: Likely secondary to drug overdose Receive Ativan 2 mg Continue to monitor (5) Hypokalemia: Code(s): E87.6 - Hypokalemia Status: Acute Assessment and Plan: Replace as needed (6) Depression with anxiety: Code(s): F41.8 - Other specified anxiety disorders Status: Acute Assessment and Plan: Will require follow-up upon medical clearance DS: Discharge Diagnosis Discharge Diagnosis (1) Aspiration pneumonia: Qualifiers: Aspiration pneumonia type: unspecified Laterality: unspecified laterality Lung location: unspecified part of lung Qualified Code(s): J69.0 - Pneumonitis due to inhalation of food and vomit Code(s): J69.0 - Pneumonitis due to inhalation of food and vomit Status: Acute Assessment and Plan: Patient had some infiltrates on her chest x-ray post intubation. Overnight she became afebrile, her WBC increased and thick secretions from ET tube Patient was started on empiric Zosyn She is now afebrile and on room air. She does have some cough Pending cultures Will switch Zosyn to p.o. Augmentin (2) Electrolyte abnormality: Code(s): E87.8 - Other disorders of electrolyte and fluid balance, not elsewhere classified Status: Acute Assessment and Plan: Improved after potassium replacement (3) Encephalopathy acute: Code(s): G93.40 - Encephalopathy, unspecified Status: Acute Assessment and Plan: Toxic encephalopathy secondary to drug overdose Resolved as patient is alert oriented x3 in a (4) Acute respiratory failure: Qualifiers: Respiratory failure complication: hypoxia Qualified Code(s): J96.01 - Acute respiratory failure with hypoxia Code(s): J96.00 - Acute respiratory failure, unspecified whether with hypoxia or hypercapnia Status: Acute Assessment and Plan: Acute Respiratory failure secondary to toxic encephalopathy and seizure Patient was extubated yesterday after a successful weaning trial On room air now In incentive spirometry and up in chair today (5) Seizure: Code(s): R56.9 - Unspecified convulsions Status: Acute Assessment and Plan: No seizure activity since arrival to ICU Monitor (6) Altered mental status: Code(s): R41.82 - Altered mental status, unspecified Status: Acute (7) Suicide attempt by drug overdose: Code(s): T50.902A - Poisoning by unspecified drugs, medicaments and biological substances, intentional self-harm, initial encounter Status: Acute Assessment and Plan: Patient took Seroquel tablets Supportive treatment with sedation and mechanical ventilation Off mechanical ventilation and alert oriented x3 now Last EKG showed normal QTC and QRS intervals (8) Depression with anxiety: Code(s): F41.8 - Other specified anxiety disorders Status: Acute Assessme
== END 2021-06-12 14:40 | DRG 917 ==
LOC: ANHED 16:29 → ANHICU 06-10 01:15
PROVIDERS: Emergency Medicine; Internal Medicine; Admitting Provider Internal Medicine; Emergency Provider Emergency Medicine; Visit Provider Hospitalist
DX: T43.592A Poisoning by other antipsychotics and neuroleptics, intentional self-harm, initial encounter (principal); G92 Toxic encephalopathy; J96.01 Acute respiratory failure with hypoxia; J69.0 Pneumonitis due to inhalation of food and vomit; Z20.822 Contact with and (suspected) exposure to COVID-19; R56.9 Unspecified convulsions; F41.8 Other specified anxiety disorders; E87.6 Hypokalemia; Z91.5 Personal history of self-harm; Z79.899 Other long term (current) drug therapy
CPT/HCPCS: 31500; 36415; 36600; 51701; 51702; 71045; 80048; 80053; 80307; 81001; 81025; 82375; 82805; 83050; 83735; 84443; 85025; 85027; 85610; 85730; 87070; 87077; 87186; 87205; 87426; 93005; 94003; 96361; 96365; 96366; 99285; A9270; C9803; J1650; J2060; J2250; J2543; J3010; J3480; J7030

== ENCOUNTER 2021-09-09 03:24 | Emergency (ER) | payer OTHER, SELFPAY ==
[2021-09-09 03:22] VITALS: BP 149/89; PULSE 70; RESP 16; TEMP 36.6; O2SAT 99
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
[2021-09-09] MEDS: DIVALPROEX SODIUM ER 250 MG TAB.24H PO (03:59)
== END 2021-09-09 04:00 | disposition home or self-care (01) ==
PROVIDERS: Emergency Provider Emergency Medicine
DX: F41.9 Anxiety disorder, unspecified (principal); F32.A Depression, unspecified
CPT/HCPCS: 99283; A9270

== ENCOUNTER 2021-10-03 22:16 | Emergency (ER) | payer MEDICAID, SELFPAY ==
[2021-10-03 22:27] VITALS: BP 101/67; PULSE 56; RESP 18; TEMP 36.2; O2SAT 99
--- NOTE | 2021-10-04 00:29 | ED.FEMALEGU ---
HPI - Female Genitourinary General Chief complaint: [employer] Stated complaint: vaginal bleeding Time Seen by Provider: 10/04/21 00:29 Source: patient and EMS Mode of arrival: EMS Limitations: no limitations History of Present Illness HPI Narrative: Patient is a 26-year-old female with a history of bipolar disorder presenting for evaluation of vaginal bleeding. Patient states that she had a LEEP procedure done at [facility] by [employer] Amie Mariano, and has had significant bleeding with large blood clots produced this evening. Patient denies any significant abdominal pain or back pain. She does report mild lower abdominal cramping. No fever, chills, nausea or vomiting. Patient states that she does not have follow-up with her [employer] for another 8 weeks. She was told to be expected of bleeding but did not feel that she would have this degree of bleeding. Patient denies any brisk bleeding or bright red blood. She denies any lightheadedness, dizziness, palpitations. No syncopal events. Related Data Home Medications Medication Instructions Recorded Confirmed alprazolam 0.5 mg PO TID PRN 05/13/21 06/10/21 quetiapine 300 mg PO HS 06/10/21 06/10/21 Allergies Allergy/AdvReac Type Severity Reaction Status Date / Time No Known Allergies Allergy Verified 10/04/21 01:28 Review of Systems Review of Systems: CONSTITUTIONAL: Denies fever, chills, or sweats. ENT: Denies rhinorrhea, congestion CARDIOVASCULAR: Denies chest pain, palpitations, or edema. RESPIRATORY: Denies cough or dyspnea. GASTROINTESTINAL: Denies abdominal pain, nausea, vomiting, or diarrhea. GENITOURINARY: Denies dysuria or hematuria. Reports vaginal bleeding. SKIN: Denies rash or itching. MUSCULOSKELETAL: Denies back pain, joint pain, or myalgia. NEUROLOGIC: Denies headache, numbness, or weakness. [facility] Past Medical History Medical History Anxiety Depression Suicide attempt by drug overdose Surgical History Surgical History History of cholecystectomy Family History Family History Father Anxiety Bipolar 1 disorder, manic, moderate Schizoaffective disorder Hypertension Grandparent Anxiety Bipolar 1 disorder, manic, moderate Schizoaffective disorder Hypertension Uterus cancer Other Anxiety Bipolar 1 disorder, manic, moderate Mother History of blood clots Acute myocardial infarction Breast cancer Chronic obstructive pulmonary disease Hypertension Asthma Uterus cancer Social History Social History Smoking status: Never smoker Alcohol intake: unknown Substance use: unknown Substance use type: does not use Other substance usage details: URINE DRUG SCREEN POSITIVE, REFUSES TO ANSWER Gender identity (if verbalized by the patient): Female Spiritual care concerns: No Exam Narrative: GENERAL: Awake, alert, conversant HEAD: Normocephalic, atraumatic. EYES: PERRLA and EOMI. ENT: Nares clear, no rhinorrhea or epistaxis. Mucous membranes moist. NECK: Supple. CHEST: No respiratory distress, breathing even and non labored HEART: Regular rate, sinus rhythm ABDOMEN:Non distended, mildly tender in the suprapubic region, no guarding, no rebound : Cervix has blood clot present, is insistent with LEEP procedure. No brisk bleeding. Some blood clot present. EXTREMITIES: Normal range of motion. No edema. SKIN: Warm, dry, no rash. NEURO:No focal deficits. Alert and oriented x3 Course Vital Signs Vital signs: Vital Signs Temperature 36.2 C L 10/03/21 22:27 Pulse Rate 56 L 10/03/21 22:27 Respiratory Rate 18 10/03/21 22:27 Blood Pressure 101/67 10/03/21 22:27 Pulse Oximetry 99 10/03/21 22:27 Temperature 36.2 C L 10/03/21 22:27 Pulse Rate 68 10/04/21 01:26 Respiratory Rate 20 10/04/21 01
[2021-10-04 01:10] LABS: Basophils Percent Auto 0.5 % (0.2-1.2); Eosinophils Absolute Auto 0.2 K/mm3 (0-0.3); Hematocrit 41.6 % (37.0-47.0); Hemoglobin 13.8 g/dL (12.0-15.0); Immature Granulocyte Absolute 0.01 K/mm3 (0.00-0.031); Immature Granulocyte Percent A 0.1 % (0-0.5); Lymphocytes Absolute Auto 2.48 K/mm3 (0.9-3.2); Mean Corpuscular HGB Conc 33.2 g/dl (32-36); Mean Corpuscular Hemoglobin 31.2 pg (26-34); Mean Corpuscular Volume 93.9 fl (80-100); Mean Platelet Volume 9.4 fl (7.4-10.4); Monocytes Absolute Auto 0.7 K/mm3 (0.1-0.6); Monocytes Percent Auto 8.3 % (2.6-8.5); Neutrophils Absolute Auto 4.6 K/mm3 (1.3-6.7); Neutrophils Percent Auto 58.1 % (45.5-73.1); Platelet Count Result 254 k/mm3 (150-375); Red Blood Count 4.43 M/mm3 (4.2-5.4)
[2021-10-04 01:20] LABS: Anion Gap 7 mmol/L (8-16); Blood Urea Nitrogen 16 mg/dL (7-17); Calcium 9.1 mg/dL (8.4-10.2); Carbon Dioxide 26 mmol/L (22-30); Chloride 102 mmol/L (98-107); Estimated CRCL calculation 82 ml/min; Estimated Glomerular Filt Rate > 60; Glucose 90 mg/dL (65-110); Potassium 4.1 mmol/L (3.4-5.0); Sodium 135 mmol/L (137-145)
[2021-10-04 01:21] LABS: Partial Thromboplastin Time 28.2 SECONDS (22.3-36.8); Prothrombin Time 12.7 Seconds (11.1-14.7)
[2021-10-04 01:26] VITALS: BP 97/67; PULSE 68; RESP 20; O2SAT 100
[2021-10-04 01:51] LABS: Thyroid Stimulating Hormone 0.054 uIU/mL (0.465-4.680)
[2021-10-04 02:20] VITALS: BP 136/77; PULSE 78; RESP 14; O2SAT 97
[2021-10-04] MEDS: oxyCODONE/ACETAMINOPHEN (*CRX) 5-325 MG TABLET 1 TABLET PO (02:21)
== END 2021-10-04 02:20 | disposition home or self-care (01) ==
PROVIDERS: Emergency Provider Emergency Medicine; PCP Family Medicine
DX: G89.18 Other acute postprocedural pain (principal); N99.821 Postprocedural hemorrhage of a genitourinary system organ or structure following other procedure
CPT/HCPCS: 36415; 80048; 84443; 85025; 85610; 85730; 86850; 86900; 86901; 99284; A9270

== ENCOUNTER 2022-08-06 16:03 | Emergency (ER) | payer OTHER, SELFPAY ==
[2022-08-06 16:12] VITALS: BP 157/97; PULSE 91; RESP 18; TEMP 37.7; O2SAT 97
--- NOTE | 2022-08-06 16:28 | ED.UPPEXIN ---
HPI - Extremity Injury (Upper) General Chief Complaint: Upper Respiratory Infection Stated Complaint: uri Time Seen by Provider: 08/06/22 16:21 Source: patient Mode of arrival: ambulatory Limitations: no limitations History of Present Illness HPI narrative: Patient presents today complaining of right shoulder pain x3 days. Pain was present on when she woke up from sleeping. Patient sleeps on a couch and sleeps with her arm above her head. Pain increases with movement and is absent at rest. Denies numbness or tingling in the arm or hand. She has been taking Tylenol arthritis with mild relief. Related Data Home Medications Medication Instructions Recorded Confirmed alprazolam 1 mg tablet 1 mg PO DIRECTED 08/06/22 08/06/22 aripiprazole 5 mg tablet 5 mg PO DAILY 08/06/22 08/06/22 doxepin 25 mg capsule 25 mg PO DAILY 08/06/22 08/06/22 hydroxyzine pamoate 25 mg capsule 25 mg PO DAILY 08/06/22 08/06/22 Allergies Allergy/AdvReac Type Severity Reaction Status Date / Time No Known Allergies Allergy Verified 08/06/22 16:09 Review of Systems Review of Systems: CONSTITUTIONAL: Denies body aches, fever, chills, or sweats. EYES: Denies visual changes, redness, or discharge. ENT: Denies rhinorrhea, congestion, sore throat, or otalgia. CARDIOVASCULAR: Denies chest pain, palpitations, or edema. RESPIRATORY: Denies cough or dyspnea. GASTROINTESTINAL: Denies abdominal pain, nausea, vomiting, or diarrhea. GENITOURINARY: Denies dysuria or hematuria. SKIN: Denies rash, itching, or wounds. MUSCULOSKELETAL: Denies back pain, or myalgia.+ Right shoulder pain NEUROLOGIC: Denies headache, numbness, tingling, or weakness. PSYCH: Denies depression or anxiety. [facility] Past Medical History Medical History Anxiety Depression Suicide attempt by drug overdose Surgical History Surgical History History of cholecystectomy Family History Family History Father Anxiety Bipolar 1 disorder, manic, moderate Schizoaffective disorder Hypertension Grandparent Anxiety Bipolar 1 disorder, manic, moderate Schizoaffective disorder Hypertension Uterus cancer Other Anxiety Bipolar 1 disorder, manic, moderate Mother History of blood clots Acute myocardial infarction Breast cancer Chronic obstructive pulmonary disease Hypertension Asthma Uterus cancer Social History Social History Smoking status: Never smoker Alcohol intake: unknown Substance use: unknown Substance use type: does not use Other substance usage details: URINE DRUG SCREEN POSITIVE, REFUSES TO ANSWER Gender identity (if verbalized by the patient): Female Spiritual care concerns: No Comments At time of signature, I have reviewed and agree with nursing past medical, surgical, social and family history unless otherwise noted. Please see nursing chart for further information. There is no relevant family history pertinent to the presenting complaint Exam Narrative: GENERAL: Well-appearing, well-nourished, and in no acute distress. HEAD: Normocephalic, atraumatic. EYES: EOMI. No redness or drainage. Conjunctivae normal. ENT: Mucous membranes pink and moist. NECK: Normal AROM. CHEST: No respiratory distress. EXTREMITIES: Right shoulder: The entire right shoulder is nontender to palpation. Patient has full range of motion, but has pain raising her arm more than 90 degrees above her head. No pain with internal or external rotation. Distal sensation intact. Capillary refill normal. Radial pulse normal. Patient localizes pain to the anterior shoulder. SKIN: Warm, dry, no rash. Capillary refill normal. Normal skin turgor. NEURO: No focal deficits. Alert and oriented x3. Gait steady. PSYCH: Normal affec
== END 2022-08-06 16:35 | disposition home or self-care (01) ==
PROVIDERS: Emergency Provider Nurse Practitioner
DX: M25.511 Pain in right shoulder (principal); F41.9 Anxiety disorder, unspecified
CPT/HCPCS: 99213; G0463